=== PATIENT | male | born 1990 | race Asian ===

== ENCOUNTER 2022-01-17 14:17 | Emergency (ER) | payer OTHER, MEDICAID, SELFPAY ==
[2022-01-17 14:25] VITALS: BP 125/96; PULSE 120; RESP 24; TEMP 36.4; O2SAT 95; BMI 25.7
--- NOTE | 2022-01-17 14:42 | ED_ITS ---
HPI - SOB/Dyspnea <APOLLO Prather - Last Filed: 01/17/22 16:03> General Chief Complaint: Shortness of Breath/Dyspnea Stated Complaint: SOB/Asthama attack because of flu t-1 Time Seen by Provider: 01/17/22 14:33 Source: patient Mode of arrival: Ambulatory Limitations: no limitations History of Present Illness HPI Narrative: This is a 31-year-old male who presents to the emergency department complaining of 14 hours of worsening shortness of breath with history of asthma after exposure to influenza. Patient states that he uses albuterol only at baseline, does not have any significant medical problems other than asthma and states he had COVID approximately 3 months ago. He denies fever, chills, states he is had post-tussive emesis today but denies vomiting otherwise. Related Data Previous Rx's Medication Instructions Recorded albuterol sulfate 90 mcg/actuation 1 puff inhalation QID PRN 01/17/22 aerosol inhaler shortness of breath or wheezing #8.5 grams cetirizine 5 mg tablet 10 mg PO DAILY PRN congestion #14 01/17/22 tabs magnesium oxide 420 mg tablet 420 mg PO BEDTIME #14 tabs 01/17/22 prednisone 20 mg tablet 20 mg PO DAILY 4 days #4 tabs 01/17/22 Allergies Allergy/AdvReac Type Severity Reaction Status Date / Time No Known Drug Allergies Allergy Verified 01/17/22 14:25 Review of Systems <APOLLO Prather - Last Filed: 01/17/22 16:03> Review of Systems Narrative: Review of systems is negative for acute abnormalities unless otherwise noted in HPI Patient History <APOLLO Prather - Last Filed: 01/17/22 16:03> Social History Smoking Status: Never smoker Smoking Status: Never smoker Substance Use Type: does not use Exam <APOLLO Prather - Last Filed: 01/17/22 16:03> Narrative Exam Narrative: Reviewed vitals signs and nursing notes. General: cooperative, comfortable, in no acute distress, well groomed, patient is sitting upright, appears to have mild respiratory distress, RT is assisting with nebulizer HEENT: symmetrical facial expressions, moist mucous membranes Cardiovascular: Tachycardic rate and regular rhythm, no peripheral edema, warm extremities Respiratory: Increased effort, diminished breath sounds throughout, patient has occasional squeaks but is mostly tight, retractions present, speaking in 2-3 word sentences, RT at the bedside initiating DuoNebidor, tachypneic Skin: brisk capillary refill, without pallor or erythema Neuro: normal speech and cognition, A&O x3, ambulatory, clear speech Psych: mental status is grossly normal, congruent mood, normal affect, pleasant and cooperative Initial Vital Signs Initial Vital Signs: Vital Signs Temperature 97.6 F 01/17/22 14:25 Pulse Rate 120 H 01/17/22 14:25 Respiratory Rate 24 01/17/22 14:25 Blood Pressure 125/96 H 01/17/22 14:25 Pulse Oximetry 95 01/17/22 14:25 Oxygen Delivery Method 01/17/22 14:25 <Roderick Gutierrez DO - Last Filed: 01/17/22 17:55> Initial Vital Signs Initial Vital Signs: Vital Signs Temperature 97.6 F 01/17/22 14:25 Pulse Rate 120 H 01/17/22 14:25 Respiratory Rate 24 01/17/22 14:25 Blood Pressure 125/96 H 01/17/22 14:25 Pulse Oximetry 95 01/17/22 14:25 Oxygen Delivery Method 01/17/22 14:25 Course <APOLLO Prather - Last Filed: 01/17/22 16:03> Orders Ordered: ED Orders 01/17/22 14:33 RT Consult Eval and Treat NOW 01/17/22 14:40 Covid-19 + FLU A/B + RSV - PCR Stat Discontinued Medications Albuterol/Ipratropium (Albuterol/Ipratropium 3 Ml Ampul) 3 ml INH NOW ONE Stop: 01/17/22 14:41 Last Admin: 01/17/22 14:44 Dose: 3 ml Documented By: CARMEN Albuterol/Ipratropium (Albuterol/Ipratropium 3 Ml Ampul) 3 ml INH NOW ONE Stop: 01/17/22 14:42 Last Admin: 01/17/22 15:07 Dose: Not Given Documented By: TRISTA Dexamethasone (Dexamethasone 10 Mg/Ml Vial) 10 mg PO NOW ONE Stop: 01/17/22 14:42 Last Admin: 01/17/22 15:05 Dose: 10 mg Documented By: TRISTA Ondansetron HCl (Ondansetron 4 Mg Odt) 4 mg SL NOW ONE Stop: 01/17/22 14:43 Last Admin: 01/17/22 15:04 Dose: 4 mg Documented By: TRISTA Vital Signs Vital signs: Vital Signs - 8 hr 01/17/22 14:25 01/17/22 14:44 01/17/22 15:00 Temperature 97.6 F Pulse Rate 120 H 115 H 115 H Respiratory Rate 24 Blood Pressure 125/96 H Pulse Oximetry 95 98 100 Oxygen Delivery Method Room Air 01/17/22 15:30 01/17/22 16:00 01/17/22 16:11 Temperature Pulse Rate 110 H 106 H 103 H Respiratory Rate Blood Pressure 146/83 H Pulse Oximetry 96 94 96 Oxygen Delivery Method Room Air <Roderick Gutierrez DO - Last Filed: 01/17/22 17:55> Orders Ordered: ED Orders 01/17/22 14:33 RT Consult Eval and Treat NOW 01/17/22 14:40 Covid-19 + FLU A/B + RSV - PCR Stat Discontinued Medications Albuterol/Ipratropium (Albuterol/Ipratropium 3 Ml Ampul) 3 ml INH NOW ONE Stop: 01/17/22 14:41 Last Admin: 01/17/22 14:44 Dose: 3 ml Documented By: CARMEN Albuterol/Ipratropium (Albuterol/Ipratropium 3 Ml Ampul) 3 ml INH NOW ONE Stop: 01/17/22 14:42 Last Admin: 01/17/22 15:07 Dose: Not Given Documented By: TRISTA Dexamethasone (Dexamethasone 10 Mg/Ml Vial) 10 mg PO NOW ONE Stop: 01/17/22 14:42 Last Admin: 01/17/22 15:05 Dose: 10 mg Documented By: TRISTA Ondansetron HCl (Ondansetron 4 Mg Odt) 4 mg SL NOW ONE Stop: 01/17/22 14:43 Last Admin: 01/17/22 15:04 Dose: 4 mg Documented By: TRISTA Vital Signs Vital signs: Vital Signs - 8 hr 01/17/22 14:25 01/17/22 14:44 01/17/22 15:00 Temperature 97.6 F Pulse Rate 120 H 115 H 115 H Respiratory Rate 24 Blood Pressure 125/96 H Pulse Oximetry 95 98 100 Oxygen Delivery Method Room Air 01/17/22 15:30 01/17/22 16:00 01/17/22 16:11 Temperature Pulse Rate 110 H 106 H 103 H Respiratory Rate Blood Pressure 146/83 H Pulse Oximetry 96 94 96 Oxygen Delivery Method Room Air MDM - SOB/Dyspnea <Vanna Yepez, [employer]PA[employer]ER - Last Filed: 01/17/22 16:03> Lab Data Labs: Lab Results 01/17/22 Range/Units 14:40 SARS-CoV-2 (PCR) Negative (Negative) Influenza A (RT-PCR) Flu a negative (NEGATIVE) Influenza B (RT-PCR) Flu b negative (NEGATIVE) RSV (PCR) Negative (Negative) MDM Narrative Medical decision making narrative: This is a 31-year-old male who presents to the emergency department for shortness of breath and states is related to exposure to influenza a and he has been sick for the last 3 days with a couple episodes of posttussive emesis. On exam, patient had diminished breath sounds throughout, his chest was tight with occasional squeaks, DuoNeb was started by respiratory therapy in it markedly improved his shortness of breath, work of breathing, comfort and breath sounds. He was given dexamethasone, chest tightness and wheezing improve markedly in no further albuterol treatments were needed. Patient is afebrile, without increased work of breathing, hypoxia, rhonchi, or other symptom to suggest bacterial infection. Other possible diagnosis' considered include; viral URI, influenza, pneumonia, pharyngitis, acute bronchitis, allergic rhinitis, pe rtussis, sinusitis, appendicitis, dehydration. Rest, drink plenty of fluids, NSAIDS for muscle aches and pains. Return to ED for worsening symptoms such as SOB, chest pain, inability to take adequate oral fluids, fever, or productive cough. Is given prescription of prednisone for the next few days, albuterol was refilled, encourage use [id number] Tylenol and ibuprofen, antihistamines, and decongestants as needed. Patient is appropriate and amenable to discharge home. Vital signs are stable on repeat examination is unremarkable. Patient has been informed of results. Patient has been given strict return to ER precautions for any new or worsening symptoms. Patient understands to follow up closely with outpatient providers as instructed. Patient understands plan and agrees to discharge home. All questions and concerns answered at this time. <Roderick Gutierrez, DO - Last Filed: 01/17/22 17:55> Lab Data Labs: Lab Results 01/17/22 Range/Units 14:40 SARS-CoV-2 (PCR) Negative (Negative) Influenza A (RT-PCR) Flu a negative (NEGATIVE) Influenza B (RT-PCR) Flu b negative (NEGATIVE) RSV (PCR) Negative (Negative) Discharge Plan Departure Patient Disposition: Home Clinical Impression: Asthma with exacerbation Activity Restrictions/Additional Instructions: *You have been diagnosed with an asthma exacerbation, this could be due to viral illness, you tested negative for influenza, COVID, and RSV today but it could turn positive in the next few days. Tomorrow please start taking prednisone 20 mg daily for the next 4 days, take magnesium at night and Zyrtec 10 mg at night as needed for congestion. I have refilled your albuterol inhaler, please come back to the emergency department if you experience shortness of breath like you did, I hope you feel better soon, stay hydrated, and use Tylenol and ibuprofen as needed for muscle aches and fever. *What to do: *Please continue to take your regular medications as directed. [x ] New medication prescriptions sent to your pharmacy: [[facility]] [ ] New medication written as a paper prescription [ ] No new medications given *Please follow up with your primary care provider in 2-3 days, call for an appointment. Let them know you were seen in the Emergency Department and that we asked that you be seen for follow-up. We will electronically transmit a record of today's note if your PCP is in our system *If you do not have a primary care provider please contact [phone] to establish care with one of the [facility] primary care providers. *Return to Emergency Department if you should have any new, worsening, or concerning symptoms, such as [fever greater than 101F, chills, worsening pain, persistent vomiting or other bothersome symptoms]. Prescriptions: New prednisone 20 mg tablet 20 mg PO DAILY 4 Days Qty: 4 0RF cetirizine 5 mg tablet 10 mg PO DAILY PRN (Reason: congestion) Qty: 14 0RF albuterol sulfate 90 mcg/actuation HFA aerosol inhaler 1 puff inhalation QID PRN (Reason: shortness of breath or wheezing) Qty: 8.5 3RF magnesium oxide 420 mg tablet 420 mg PO BEDTIME Qty: 14 0RF Referrals: Reggie Guerra DO [Primary Care Provider] - Visit Report Forms: Patient Portal/API <Roderick Gutierrez DO - Last Filed: 01/17/22 17:55> Cosign ED Attending Cosignature Attestation: Dr Gutierrez Co-Sign Statement: I was available for consultation during this patient's emergency department visit. This chart is signed by myself for administrative purposes only. I did not have direct contact with this patient during this visit. They were seen independently by the APC.
[2022-01-17 14:44] VITALS: PULSE 115; O2SAT 98
[2022-01-17] MEDS: ALBUTEROL/IPRATROPIUM 3 ML AMPUL INH (14:44)
[2022-01-17 15:00] VITALS: PULSE 115; O2SAT 100
[2022-01-17] MEDS: ONDANSETRON 4 MG ODT SL (15:04)
[2022-01-17] MEDS: DEXAMETHASONE 10 MG/ML VIAL PO (15:05)
[2022-01-17 15:25] LABS: Influenza A - CEPHEID Flu A NEGATIVE (NEGATIVE); Influenza B - CEPHEID Flu B NEGATIVE (NEGATIVE); Respiratory Syncytial Virus Negative (Negative)
[2022-01-17 15:28] LABS: COVID-19 CEPHEID 4-PLEX PCR Negative (Negative)
[2022-01-17 15:30] VITALS: PULSE 110; O2SAT 96
[2022-01-17 16:00] VITALS: PULSE 106; O2SAT 94
[2022-01-17 16:11] VITALS: BP 146/83; PULSE 103; O2SAT 96
== END 2022-01-17 16:12 | disposition home or self-care (01) ==
PROVIDERS: Emergency Medicine; Emergency Provider Nurse Practitioner Critical Care Medicine; PCP Family Medicine
DX: J45.901 Unspecified asthma with (acute) exacerbation (principal); Z20.822 Contact with and (suspected) exposure to COVID-19
CPT/HCPCS: 0241U; 94640; 99283; J1100

== ENCOUNTER 2022-03-23 08:52 | Emergency (ER) | payer OTHER, MEDICAID, SELFPAY ==
[2022-03-23 09:08] VITALS: BP 136/88; PULSE 91; O2SAT 95
--- NOTE | 2022-03-23 09:08 | ED_ITS ---
HPI - General Adult General Chief complaint: Abdominal Pain Stated complaint: thinks kidney stones Time Seen by Provider: 03/23/22 09:00 Source: patient Mode of arrival: Ambulatory Limitations: no limitations History of Present Illness HPI narrative: Patient is a 32-year-old male who is here for evaluation of what he states is a kidney stone. He states that about 5 years ago he had a stone. This was diagnosed on a CT scan. He states he received some medications and he thinks that he passed it on his own. Approximately 1 week ago he started to have some blood in his urine in pain in his abdomen that was both sides with left being worse than right. No fevers. No vomiting. It lasted 2 hours and then res olved. At a reoccurrence of that pain this morning. He states he is having blood in his urine. Again no fevers. No change in bowel habits. He does urinary hesitancy. Describes pain across both sides of his lower abdomen and both sides of his lower back with left being greater than right. Related Data Previous Rx's Medication Instructions Recorded albuterol sulfate 90 mcg/actuation 1 puff inhalation QID PRN 01/17/22 aerosol inhaler shortness of breath or wheezing #8.5 grams cetirizine 5 mg tablet 10 mg PO DAILY PRN congestion #14 01/17/22 tabs magnesium oxide 420 mg tablet 420 mg PO BEDTIME #14 tabs 01/17/22 hydrocodone 5 mg-acetaminophen 325 1 tab PO Q4-6H PRN pain #10 tabs 03/23/22 mg tablet ondansetron 4 mg disintegrating 4 mg PO Q6H PRN nausea and 03/23/22 tablet vomiting #14 tabs Allergies Allergy/AdvReac Type Severity Reaction Status Date / Time No Known Drug Allergies Allergy Verified 03/23/22 09:09 Review of Systems Constitutional Constitutional: Reports system reviewed and no additional complaints, except as documented Gastrointestinal Gastrointestinal: Reports system reviewed and no additional complaints, except as documented Genitourinary Genitourinary: Reports system reviewed and no additional complaints, except as documented Integumentary/Breasts Skin/Breast: Reports system reviewed and no additional complaints, except as documented Patient History Social History Smoking Status: Never smoker Smoking Status: Never smoker Substance Use Type: does not use Exam Initial Vital Signs Initial Vital Signs: Vital Signs Temperature 98.3 F 03/23/22 09:13 Pulse Rate 85 03/23/22 09:13 Respiratory Rate 15 03/23/22 09:13 Blood Pressure 136/88 03/23/22 09:13 Pulse Oximetry 100 03/23/22 09:13 Oxygen Delivery Method 03/23/22 09:13 HENMT Head: normal to inspection and normocephalic Resp Effort & Inspection: normal respiratory effort Cardio Rate: regular rate GI Inspection: normal to inspection and non-distended Palpation: soft and No tender (No reproducible tenderness) Back/Spine/Pelvis Back: No CVA tenderness Skin General: no rashes or lesions noted Extrem General: normal to inspection and capillary refill normal Course Orders Ordered: ED Orders 03/23/22 09:06 Urine Microscopic Stat 03/23/22 09:11 CT kidney ureter bladder (KUB) Stat 03/23/22 09:42 Basic Metabolic Panel Stat Complete Blood Count AUTO DIFF Stat Ondansetron HCl (Ondansetron 4 Mg/2 Ml Inj) 4 mg IV NOW PRN PRN Reason: Nausea And Vomiting Ondansetron HCl (Ondansetron 4 Mg Odt) 4 mg SL NOW PRN PRN Reason: Nausea And Vomiting Vital Signs Vital signs: Vital Signs - 8 hr 03/23/22 09:13 Temperature 98.3 F Pulse Rate 85 Respiratory Rate 15 Blood Pressure 136/88 Pulse Oximetry 100 Oxygen Delivery Method Room Air Medical Decision Making Differential Diagnosis Differential Diagnosis: Kidney stone, appendicitis, pyelo, UTI and others Lab Data Lab results reviewed: Yes I reviewed the patient's lab results. 03/23/22 09:42 03/23/22 09:42 Labs: Lab Results 03/23/22 03/23/22 Range/Units 09:06 09:42 WBC 11.9 H (4.5-11.0) X10^3/uL RBC 5.56 (4.5-5.9) X10^6/uL Hgb 15.5 (13.5-17.5) g/dL Hct 46.2 (41-53) % MCV 83.1 (80-100) fL MCH 27.8 (26-34) PG MCHC 33.5 (30-36) % RDW 12.9 (11.6-14.8) % Plt Count 227 (150-400) X10^3/uL Neut % (Auto) 88.1 H (50-75) % Lymph % (Auto) 7.3 L (25-40) % Bonner % (Auto) 3.4 (3-14) % Eos % (Auto) 0.8 L (2-4) % Baso % (Auto) 0.4 (0-2) % Neut # (Auto) 41826 H (9047-2989) /uL Lymph # (Auto) 900 L (1618-4709) /uL Bonner # (Auto) 400 (0-900) /uL Eos # (Auto) 100 (0-450) /uL Baso # (Auto) 0 (0-100) /uL Urine RBC >100/hpf H (0-5/HPF) Urine WBC 0-1/hpf (0-5/HPF) Ur Squamous Epith Cells 0-1 /hpf (0-5/HPF) Urine Bacteria Few (2-10) H (None) Urine Mucus 1+ H (Negative) Ur Culture Indicated? Cult not indicated Urine Dip Bedside Urine Glucose Negative Bedside Urine Bilirubin - Negative Bedside Urine Ketone - Negative Urine Specific [place] 1.015 Bedside Urine Occult Blood +++ Bedside Urine pH 6.0 Bedside Urine Protein + 30 Bedside Urine Urobilinogen - Negative Bedside Urine Nitrite - Negative Bedside Urine Leukocytes - Negative Esterase Point of care testing: Urine Dip Bedside Urine Glucose Negative Bedside Urine Bilirubin - Negative Bedside Urine Ketone - Negative Urine Specific [place] 1.015 Bedside Urine Occult Blood +++ Bedside Urine pH 6.0 Bedside Urine Protein + 30 Bedside Urine Urobilinogen - Negative Bedside Urine Nitrite - Negative Bedside Urine Leukocytes - Negative Esterase Imaging Data CT scan - abdomen/pelvis: Radiologist's Impression: [place] [address] CT Scan Report Signed Patient: Renzo Shannon MR#: [id number] : 1990 Acct:[id number] Age/Sex: 32 / M Date of Service: 03/23/22 Loc: ED Accession Number: [id number] ?? Procedure: CT kidney ureter bladder (KUB) Ordering Provider: Roderick Gutierrez D.O. PROCEDURE:? CT KIDNEY URETER BLADDER (KUB) ? INDICATIONS:? Left-sided flank pain eval for stone ? TECHNIQUE:? Axial sections were acquired from the lung bases to the pubic symphysis.? C oronal and sagittal reformats were performed.? For radiation dose reduction, the following was used: ?automated exposure control, adjustment of mA and/or kV according to patient size.? ? COMPARISON:? None. ? FINDINGS:? Image quality:? Excellent.? ? Lung bases:? Unremarkable.? ? Heart:? No significant findings. ? URINARY: Right Kidney:? Punctate right renal calcification is present.? No obstruction. Right Ureter:? No hydroureter.? ? Left Kidney: ? No stones or hydronephrosis. Left Ureter:? There is a very slight appearance of hydronephrosis.? Punctate calcification is present approximately 5 mm from the left ureterovesicular junction.? ? Bladder:? Normal wall thickness. No stones. ? ? ? ABDOMEN: Liver:? Liver is mildly prominent measuring 17.8 cm. Gallbladder:? Unremarkable.? ? Biliary ducts:? Unremarkable.? ? Pancreas:? Unremarkable.? ? Spleen:? Unremarkable.? ? Adrenal Glands:? Unremarkable.? ? ? Stomach and Bowel:? Stomach, small bowel loops, and colon are unremarkable.? Peritoneum:? No abnormal intraperitoneal fluid.? No free air.? ? Ventral Wall: ? Trace fat containing ventral hernia.? Abdominal Nodes:? No enlarged retroperitoneal or mesenteric lymph nodes.? Vessels:? Aorta and inferior vena cava are normal in size.? ? PELVIS: Pelvic Organs:? Unremarkable.? ? Pelvic Nodes: Unremarkable. Miscellaneous: No inguinal hernias are seen. ? ? ? Bones:? Unremarkable. ? IMPRESSION:? ? Punctate calcification 5 mm proximal to the ureterovesicular junction with minimal hydroureter. ? ? ? Dictated by: Oksana Maciel M.D. on 03/23/2022 at 10:20 ? ? Approved by: Oksana Maciel M.D. on 03/23/2022 at 10:23? MDM Narrative Medical decision making narrative: CT scan does show 5 mm distal stone on the left. No signs of pyelo. Urinalysis is unremarkable. Kidney functions unremarkable. Will discharge patient home w ith symptom treatment. He was given return precautions. He expressed understanding and agreement. Discharge Plan Departure Patient Disposition: Home Clinical Impression: Renal colic on left side Instructions: DI for Kidney Stones Activity Restrictions/Additional Instructions: Be sure that you are staying hydrated. Take the medications as needed and as directed. They were electronically transmitted to [facility] per your request. Return to the emergency department for any new or worsening symptoms. Prescriptions: New hydrocodone-acetaminophen 5-325 mg tablet 1 tab PO Q4-6H PRN (Reason: pain) Qty: 10 0RF ondansetron 4 mg tablet,disintegrating 4 mg PO Q6H PRN (Reason: nausea and vomiting) Qty: 14 0RF No Action cetirizine 5 mg tablet 10 mg PO DAILY PRN (Reason: congestion) Qty: 14 0RF albuterol sulfate 90 mcg/actuation HFA aerosol inhaler 1 puff inhalation QID PRN (Reason: shortness of breath or wheezing) Qty: 8.5 3RF magnesium oxide 420 mg tablet 420 mg PO BEDTIME Qty: 14 0RF Referrals: Reggie Guerra DO [Primary Care Provider] - Stand Alone Forms: Patient Portal/API
--- NOTE | 2022-03-23 09:11 | DI.CT.S_ITS ---
PROCEDURE: CT KIDNEY URETER BLADDER (KUB) INDICATIONS: Left-sided flank pain eval for stone TECHNIQUE: Axial sections were acquired from the lung bases to the pubic symphysis. Coronal and sagittal reformats were performed. For radiation dose reduction, the following was used: automated exposure control, adjustment of mA and/or kV according to patient size. COMPARISON: None. FINDINGS: Image quality: Excellent. Lung bases: Unremarkable. Heart: No significant findings. URINARY: Right Kidney: Punctate right renal calcification is present. No obstruction. Right Ureter: No hydroureter. Left Kidney: No stones or hydronephrosis. Left Ureter: There is a very slight appearance of hydronephrosis. Punctate calcification is present approximately 5 mm from the left ureterovesicular junction. Bladder: Normal wall thickness. No stones. ABDOMEN: Liver: Liver is mildly prominent measuring 17.8 cm. Gallbladder: Unremarkable. Biliary ducts: Unremarkable. Pancreas: Unremarkable. Spleen: Unremarkable. Adrenal Glands: Unremarkable. Stomach and Bowel: Stomach, small bowel loops, and colon are unremarkable. Peritoneum: No abnormal intraperitoneal fluid. No free air. Ventral Wall: Trace fat containing ventral hernia. Abdominal Nodes: No enlarged retroperitoneal or mesenteric lymph nodes. Vessels: Aorta and inferior vena cava are normal in size. PELVIS: Pelvic Organs: Unremarkable. Pelvic Nodes: Unremarkable. Miscellaneous: No inguinal hernias are seen. Bones: Unremarkable. IMPRESSION: Punctate calcification 5 mm proximal to the ureterovesicular junction with minimal hydroureter. Dictated by: Oksana Maciel M.D. on 03/23/2022 at 10:20 Approved by: Oksana Maciel M.D. on 03/23/2022 at 10:23
[2022-03-23 09:13] VITALS: BP 136/88; PULSE 85; RESP 15; TEMP 36.8; O2SAT 100; BMI 25.7
[2022-03-23 09:34] LABS: RBC Urine >100/HPF (0-5/HPF); WBC Urine 0-1/HPF (0-5/HPF)
[2022-03-23 09:35] LABS: Squamous Epithelial Cell Urine 0-1 /HPF (0-5/HPF)
[2022-03-23 09:36] LABS: Bacteria Urine Few (2-10); Culture Indicated Urine Cult Not Indicated; Mucus Urine 1+ (Negative)
[2022-03-23 09:53] LABS: Add Manual Diff / Slide Review NO; Basophils Absolute Auto 0 /uL (0-100); Basophils Percent Auto 0.4 % (0-2); Eosinophils Absolute Auto 100 /uL (0-450); Eosinophils Percent Auto 0.8 % (2-4); Hematocrit 46.2 % (41-53); Hemoglobin 15.5 g/dL (13.5-17.5); Lymphocytes Absolute Auto 900 /uL (1100-4500); Lymphocytes Percent Auto 7.3 % (25-40); Mean Corpuscular HGB Conc 33.5 % (30-36); Mean Corpuscular Hemoglobin 27.8 PG (26-34); Mean Corpuscular Volume 83.1 fL (80-100); Monocytes Absolute Auto 400 /uL (0-900); Monocytes Percent Auto 3.4 % (3-14); Neutrophils Absolute Auto 10500 /uL (1500-7000); Neutrophils Percent Auto 88.1 % (50-75); Platelet Count 227 X10^3/uL (150-400); Red Blood Cell Count 5.56 X10^6/uL (4.5-5.9); Red Cell Distribution Width 12.9 % (11.6-14.8); White Blood Cell Count 11.9 X10^3/uL (4.5-11.0)
[2022-03-23 10:39] LABS: Blood Urea Nitrogen 12 mg/dL (9-20); Calcium 9.4 mg/dL (8.4-10.2); Carbon Dioxide 28 mmol/L (22-32); Chloride 100 mmol/L (98-107); Estimated Glomerular Filt Rate > 60 mL/min (>60); Glucose 98 mg/dL (70-100); HEMOLYSIS < 15 (0-50); Potassium 4.2 mmol/L (3.4-5.1); Sodium 139 mmol/L (137-145)
== END 2022-03-23 10:42 | disposition home or self-care (01) ==
PROVIDERS: Emergency Provider Emergency Medicine; PCP Family Medicine
DX: N23 Unspecified renal colic (principal)
CPT/HCPCS: 36415; 74176; 80048; 81003; 81015; 85025; 99283; 99284

== ENCOUNTER 2022-03-24 13:17 | Emergency (ER) | payer OTHER, MEDICAID, SELFPAY ==
[2022-03-24 13:21] VITALS: BP 166/107; PULSE 79; RESP 17; TEMP 36.6; O2SAT 98; BMI 25.7
--- NOTE | 2022-03-24 13:47 | ED_ITS ---
HPI - Recheck/Abnormal Lab/Rx General Chief Complaint: Recheck/Abnormal Lab/Rx Stated Complaint: kidney pain x2 days Time Seen by Provider: 03/24/22 13:38 Source: patient Mode of arrival: Ambulatory Limitations: no limitations History of Present Illness HPI narrative: Patient is a 32-year-old male who I evaluated in the emergency department yesterday and had a workup and diagnosed with a 5 mm left-sided distal ureteral stone. Kidney function was unremarkable. There is no indication of any urinary tract infection. He had minimal if any hydro on the left. Was discharged home with Zofran and pain medication. He states that after he went home he was feeling well until this morning he woke up with increased pain and nausea. He took the nausea medication and that did help that symptom however the pain med ication has not helped and he continues to have quite a bit of discomfort. No fevers. Pain is on the left side of his abdomen. Related Data Previous Rx's Medication Instructions Recorded albuterol sulfate 90 mcg/actuation 1 puff inhalation QID PRN 01/17/22 aerosol inhaler shortness of breath or wheezing #8.5 grams cetirizine 5 mg tablet 10 mg PO DAILY PRN congestion #14 01/17/22 tabs magnesium oxide 420 mg tablet 420 mg PO BEDTIME #14 tabs 01/17/22 hydrocodone 5 mg-acetaminophen 325 1 tab PO Q4-6H PRN pain #10 tabs 03/23/22 mg tablet ondansetron 4 mg disintegrating 4 mg PO Q6H PRN nausea and 03/23/22 tablet vomiting #14 tabs ketorolac 10 mg tablet 10 mg PO TID PRN pain 5 days #15 03/24/22 tabs tamsulosin 0.4 mg capsule (Flomax) 0.4 mg PO DAILY #14 caps 03/24/22 Allergies Allergy/AdvReac Type Severity Reaction Status Date / Time No Known Drug Allergies Allergy Verified 03/24/22 13:23 Review of Systems Constitutional Constitutional: Reports system reviewed and no additional complaints, except as documented Gastrointestinal Gastrointestinal: Reports system reviewed and no additional complaints, except as documented Genitourinary Genitourinary: Reports system reviewed and no additional complaints, except as documented Integumentary/Breasts Skin/Breast: Reports system reviewed and no additional complaints, except as documented Neurologic Neurologic: Reports system reviewed and no additional complaints, except as documented Hematologic/Lymphatic On Anticoagulants: No Patient History Social History Smoking Status: Never smoker Smoking Status: Never smoker alcohol intake frequency: other Substance Use Type: does not use Exam Initial Vital Signs Initial Vital Signs: Vital Signs Temperature 98 F 03/24/22 13:21 Pulse Rate 79 03/24/22 13:21 Respiratory Rate 17 03/24/22 13:21 Blood Pressure 166/107 H 03/24/22 13:21 Pulse Oximetry 98 03/24/22 13:21 Oxygen Delivery Method 03/24/22 13:21 HENMT Head: normal to inspection and normocephalic Resp Effort & Inspection: normal respiratory effort Cardio Rate: regular rate GI Inspection: non-distended Skin General: no rashes or lesions noted Neuro General: patient alert, patient awake and moves all extremities Course Orders Ordered: ED Orders 03/24/22 14:00 Basic Metabolic Panel Stat 03/24/22 14:58 Urine Microscopic Stat Tamsulosin HCl (Tamsulosin 0.4 Mg Capsule) 0.4 mg PO NOW ONE Stop: 03/24/22 15:22 Discontinued Medications Ketorolac Tromethamine (Ketorolac 30 Mg/Ml Vial) 30 mg IV NOW ONE Stop: 03/24/22 13:48 Last Admin: 03/24/22 14:08 Dose: 30 mg Documented By: NR Ondansetron HCl (Ondansetron 4 Mg/2 Ml Inj) 4 mg IV NOW ONE Stop: 03/24/22 13:48 Last Admin: 03/24/22 14:08 Dose: 4 mg Documented By: NR Vital Signs Vital signs: Vital Signs - 8 hr 03/24/22 13:21 Temperature 98 F Pulse Rate 79 Respiratory Rate 17 Blood Pressure 166/107 H Pulse Oximetry 98 Oxygen Delivery Method Room Air MDM - Recheck/Abnormal Lab/Rx Lab Data 03/24/22 14:00 Labs: Lab Results 03/24/22 Range/Units 14:00 Sodium 138 (137-145) mmol/L Potassium 4.1 (3.4-5.1) mmol/L Chloride 99 (98-107) mmol/L Carbon Dioxide 27 (22-32) mmol/L BUN 16 (9-20) mg/dL Creatinine 1.37 H (0.66-1.25) mg/dL Estimated GFR > 60 (>60) mL/min BUN/Creatinine Ratio 11.7 (6-22) Glucose 98 (70-100) mg/dL Calcium 9.4 (8.4-10.2) mg/dL Urine Dip Bedside Urine Glucose Negative Bedside Urine Bilirubin - Negative Bedside Urine Ketone +++ 80 Urine Specific Landrum 1.030 Bedside Urine Occult Blood +++ Bedside Urine pH 6.0 Bedside Urine Protein + 30 Bedside Urine Urobilinogen - Negative Bedside Urine Nitrite - Negative Bedside Urine Leukocytes - Negative Esterase MDM Narrative Medical decision making narrative: Patient has a known 5 mm left-sided ureteral stone. His urinalysis today does not show any signs of infection. He did have a slight bump in his creatinine. Patient reports a vast improvement/resolution of his symptoms after Toradol and Zofran. Given his presentation today I do feel that we can hold on any further imaging studies. No indication for acute urologic intervention. He already has pain medication and nausea medicine. Will discharge him home with Flomax and also ketorolac. He was given return precautions. He expressed understanding. Discharge Plan Departure Patient Disposition: Home Clinical Impression: Renal colic on left side Instructions: Kidney Stones -- Adult Activity Restrictions/Additional Instructions: In addition to the medicines that you were given yesterday I did send 2 new prescriptions to [facility] [place]. One is a medicine called Flomax. You can take this medication until you pass the stone. This is 1 tablet today. There is also medicine called ketorolac. This is an anti-inflammatory that you can take as needed for pain control. Return to the emergency department for any new or worsening symptoms. Prescriptions: New tamsulosin [Flomax] 0.4 mg capsule 0.4 mg PO DAILY Qty: 14 0RF ketorolac 10 mg tablet 10 mg PO TID PRN (Reason: pain) 5 Days Qty: 15 0RF No Action hydrocodone-acetaminophen 5-325 mg tablet 1 tab PO Q4-6H PRN (Reason: pain) Qty: 10 0RF ondansetron 4 mg tablet,disintegrating 4 mg PO Q6H PRN (Reason: nausea and vomiting) Qty: 14 0RF cetirizine 5 mg tablet 10 mg PO DAILY PRN (Reason: congestion) Qty: 14 0RF albuterol sulfate 90 mcg/actuation HFA aerosol inhaler 1 puff inhalation QID PRN (Reason: shortness of breath or wheezing) Qty: 8.5 3RF magnesium oxide 420 mg tablet 420 mg PO BEDTIME Qty: 14 0RF Referrals: Reggie Guerra DO [Primary Care Provider] - Stand Alone Forms: Patient Portal/API
[2022-03-24] MEDS: KETOROLAC 30 MG/ML VIAL IV (14:08)
[2022-03-24] MEDS: ONDANSETRON 4 MG/2 ML INJ IV (14:08)
--- NOTE | 2022-03-24 14:12 | PC.NURSE ---
pt states symptoms started about one week ago, he had a CT scan and was told he has kidney stones. pt was given zofran and vicodin for pain and nausea, states he was feeling better until this morning when the pain suddenly became unbearable. pt came to ER for help. pt is in position in bed, rocking back and forth.
[2022-03-24 14:26] LABS: BUN Creatinine Ratio 11.7 (6-22); Blood Urea Nitrogen 16 mg/dL (9-20); Calcium 9.4 mg/dL (8.4-10.2); Carbon Dioxide 27 mmol/L (22-32); Chloride 99 mmol/L (98-107); Estimated Glomerular Filt Rate > 60 mL/min (>60); Glucose 98 mg/dL (70-100); HEMOLYSIS < 15 (0-50); Potassium 4.1 mmol/L (3.4-5.1); Sodium 138 mmol/L (137-145)
[2022-03-24 15:24] LABS: Bacteria Urine None Seen; Culture Indicated Urine Cult Not Indicated; RBC Urine 5-10/HPF (0-5/HPF); WBC Urine 0-1/HPF (0-5/HPF)
[2022-03-24] MEDS: TAMSULOSIN 0.4 MG CAPSULE PO (15:40)
[2022-03-24 15:44] VITALS: BP 143/79; PULSE 77; RESP 18; O2SAT 97
== END 2022-03-24 15:45 | disposition home or self-care (01) ==
PROVIDERS: Emergency Provider Emergency Medicine; PCP Family Medicine
DX: N23 Unspecified renal colic (principal)
CPT/HCPCS: 36415; 80048; 81003; 81015; 96374; 96375; 99284; J1885; J2405

== ENCOUNTER 2023-05-31 23:00 | Emergency (ER) | payer OTHER, MEDICAID, SELFPAY ==
[2023-05-31 23:03] VITALS: BP 140/82; PULSE 95; RESP 22; TEMP 36.4; O2SAT 98; BMI 22.4
[2023-05-31] MEDS: ONDANSETRON 4 MG/2 ML INJ IV (23:19)
[2023-05-31] MEDS: KETOROLAC 30 MG/ML VIAL 15 MG IV (23:21)
[2023-05-31 23:26] LABS: Appearance Urine UA SL CLOUDY; Bilirubin Urine UA 1+ (NEGATIVE); Glucose Urine UA NEGATIVE (Negative); Ketones Urine UA TRACE (NEGATIVE); Leukocyte Esterase Urine UA NEGATIVE (NEGATIVE); Nitrite Urine UA POSITIVE (Negative); Occult Blood Urine UA 3+ (Negative); Protein Urine UA 3+ (Negative); Specific Gravity Urine UA >=1.030 (1.000-1.035); pH Urine UA 6.5 (4.5-8.0)
[2023-05-31 23:30] LABS: Add Manual Diff / Slide Review NO; Basophils Absolute Auto 0 /uL (0-100); Basophils Percent Auto 0.2 % (0-2); Color Urine UA Amber; Eosinophils Absolute Auto 100 /uL (0-450); Eosinophils Percent Auto 0.9 % (2-4); Hematocrit 44.1 % (41-53); Hemoglobin 14.6 g/dL (13.5-17.5); Lymphocytes Absolute Auto 1200 /uL (1100-4500); Lymphocytes Percent Auto 10.7 % (25-40); Mean Corpuscular Volume 84.7 fL (80-100); Monocytes Absolute Auto 500 /uL (0-900); Monocytes Percent Auto 4.9 % (3-14); Neutrophils Absolute Auto 9200 /uL (1500-7000); Neutrophils Percent Auto 83.3 % (50-75); Platelet Count 238 X10^3/uL (150-400); Red Blood Cell Count 5.21 X10^6/uL (4.5-5.9); Red Cell Distribution Width 12.6 % (11.6-14.8)
--- NOTE | 2023-05-31 23:33 | DI.CT.S_ITS ---
PROCEDURE: CT ABDOMEN PELVIS WO CON INDICATIONS: RLQ PAIN, HEMATURIA TECHNIQUE: Axial sections were acquired from the lung bases to the pubic symphysis. Coronal and sagittal reformats were performed. For radiation dose reduction, the following was used: automated exposure control, adjustment of mA and/or kV according to patient size. COMPARISON: None. FINDINGS: Image quality: Diagnostic. Lower Chest: No significant findings. URINARY: Right Kidney: No stones or hydronephrosis. Subtle medullary calcinosis. Right Ureter: No hydroureter. Left Kidney: Several tiny 1 mm stones are seen. Mild medullary calcinosis. No hydronephrosis. Left Ureter: No hydroureter. Bladder: Normal wall thickness. No stones. ABDOMEN: Liver: No contour-deforming solid mass. Gallbladder: Possible a small gallstone versus artifact. Biliary ducts: No biliary dilation. Pancreas: No ductal dilation. Spleen: Size is within normal limits. Adrenal Glands: No adrenal nodules. Stomach and Bowel: Normal small bowel and colonic caliber, without significant wall thickening. Normal appendix. Peritoneum: No abnormal intraperitoneal fluid. No free air. Ventral Wall: No hernia. Abdominal Nodes: No enlarged retroperitoneal or mesenteric lymph nodes. Vessels: Aorta and inferior vena cava are normal in size. PELVIS: Pelvic Organs: Unremarkable. Pelvic Nodes: Unremarkable. Miscellaneous: No inguinal hernias are seen. Bones: Unremarkable. Mild spondylitic changes in the lower lumbar spine. IMPRESSION: 1. Tiny 1 mm renal calculi in left kidney. 2. No definitive right kidney. 3. 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 4. Normal appendix. 5. Dictated by: Radha Vazquez M.D. on 06/01/2023 at 1:42 Approved by: Radha Vazquez M.D. on 06/01/2023 at 1:47
[2023-05-31 23:34] LABS: Amorphous Sediment Urine 1+; Bacteria Urine Many (>30); Ictotest Urine Negative (Negative); RBC Urine 10-30/HPF (0-5/HPF); Squamous Epithelial Cell Urine 0-1 /HPF (0-5/HPF); Urine Volume 10mL (spun); WBC Urine 0-1/HPF (0-5/HPF)
[2023-05-31 23:35] LABS: Culture Indicated Urine Specimen Cultured; Mucus Urine 2+ (Negative)
[2023-05-31 23:49] LABS: Alanine Aminotransferase 13 IU/L (<50); Albumin 5.1 g/dL (3.5-5.0); Albumin Globulin Ratio 1.6 (1.0-2.8); Alkaline Phosphatase 86 U/L (38-126); Aspartate Aminotransferase 22 IU/L (17-59); BUN Creatinine Ratio 10.8 (6-22); Bilirubin Total 0.9 mg/dL (0.2-1.3); Blood Urea Nitrogen 13 mg/dL (9-20); Calcium 9.7 mg/dL (8.4-10.2); Carbon Dioxide 28 mmol/L (22-32); Chloride 104 mmol/L (98-107); Estimated Glomerular Filt Rate > 60 mL/min (>60); Globulin 3.2 g/dL (1.7-4.1); Glucose 90 mg/dL (70-100); HEMOLYSIS < 15 (0-50); Lipase 43 U/L (23-300); Potassium 3.9 mmol/L (3.4-5.1); Sodium 141 mmol/L (137-145); Total Protein 8.3 g/dL (6.3-8.2)
--- NOTE | 2023-06-01 00:54 | ED_ITS ---
HPI - Abdominal Pain General Chief Complaint: Abdominal Pain Stated Complaint: thinks kidney stones/abd pain Time Seen by Provider: 05/31/23 23:33 Source: patient Mode of arrival: Ambulatory History of Present Illness HPI narrative: 33-year-old male presents by private vehicle from home for 1 day of right-sided abdominal pain. Patient has a history of kidney stones and he thinks he may have developed another kidney stone. Also reports associated nausea, bloating, generalized abdominal discomfort. Related Data Previous Rx's Medication Instructions Recorded albuterol sulfate 90 mcg/actuation 1 puff inhalation QID PRN 01/17/22 aerosol inhaler shortness of breath or wheezing #8.5 grams cetirizine 5 mg tablet 10 mg (2 x 5 mg) PO DAILY PRN 01/17/22 congestion #14 tabs magnesium oxide 420 mg tablet 420 mg PO BEDTIME #14 tabs 01/17/22 hydrocodone 5 mg-acetaminophen 325 1 tab PO Q4-6H PRN pain #10 tabs 03/23/22 mg tablet ondansetron 4 mg disintegrating 4 mg PO Q6H PRN nausea and 03/23/22 tablet vomiting #14 tabs tamsulosin 0.4 mg capsule (Flomax) 0.4 mg PO DAILY #14 caps 03/24/22 hydrocodone 5 mg-acetaminophen 325 1 tab PO Q8H PRN pain #7 tabs 06/01/23 mg tablet ondansetron 4 mg disintegrating 4 mg PO Q8H PRN nausea and 06/01/23 tablet vomiting #30 tabs sulfamethoxazole 800 1 tab PO Q12H #20 tabs 06/01/23 mg-trimethoprim 160 mg tablet (Bactrim DS) tamsulosin 0.4 mg capsule (Flomax) 0.4 mg PO DAILY #30 caps 06/01/23 Allergies Allergy/AdvReac Type Severity Reaction Status Date / Time No Known Drug Allergies Allergy Verified 03/24/22 13:23 Review of Systems Review of Systems Narrative: Negative except as noted above Patient History Social History Smoking Status: Never smoker Smoking Status: Never smoker alcohol intake frequency: other Substance Use Type: does not use Exam Initial Vital Signs Initial Vital Signs: Vital Signs Temperature 97.6 F 05/31/23 23:03 Pulse Rate 95 H 05/31/23 23:03 Respiratory Rate 22 05/31/23 23:03 Blood Pressure 140/82 05/31/23 23:03 Pulse Oximetry 98 05/31/23 23:03 Oxygen Delivery Method Room Air 05/31/23 23:03 Const: Awake, alert, uncomfortable, in pain, nontoxic appearance GI: Soft, tenderness to deep palpation right lower quadrant, no rebound or guarding MSK: No CVA tenderness bilaterally Skin: Warm, Dry, intact, no rashes Neuro: AO x3, CN II-XII grossly intact, moves all extremities Course Orders Ordered: Discontinued Medications Sodium Chloride (Normal Saline 0.9%) 1,000 mls @ 1,000 mls/hr IV BOLUS ONE Stop: 06/01/23 01:58 Last Infusion: 06/01/23 02:45 Dose: Infused Documented By: Admin: 06/01/23 01:23 Dose: 1,000 mls/hr Documented By: KRISHNA Ketorolac Tromethamine (Ketorolac 30 Mg/Ml Vial) 15 mg IV NOW ONE Stop: 05/31/23 23:21 Last Admin: 05/31/23 23:21 Dose: 15 mg Documented By: GEENA Morphine Sulfate (Morphine 4 Mg/Ml Inj) 4 mg IV NOW ONE Stop: 06/01/23 01:00 Last Admin: 06/01/23 01:22 Dose: 4 mg Documented By: KRISHNA Ondansetron HCl (Ondansetron 4 Mg Odt) 4 mg PO NOW PRN PRN Reason: Nausea And Vomiting Ondansetron HCl (Ondansetron 4 Mg/2 Ml Inj) 4 mg IV NOW PRN PRN Reason: Nausea And Vomiting Last Admin: 05/31/23 23:19 Dose: 4 mg Documented By: GEENA Ondansetron HCl (Ondansetron 4 Mg/2 Ml Inj) 4 mg IV NOW ONE Stop: 06/01/23 01:00 Last Admin: 06/01/23 01:22 Dose: 4 mg Documented By: KRISHNA Trimethoprim/Sulfamethoxazole (Trimeth/Sulfa 160/800 (Ds) Tablet) 1 tab PO NOW ONE Stop: 06/01/23 01:56 Last Admin: 06/01/23 02:02 Dose: 1 tab Documented By: HNG Vital Signs Vital signs: Vital Signs - 8 hr 05/31/23 23:03 Temperature 97.6 F Pulse Rate 95 H Respiratory Rate 22 Blood Pressure 140/82 Pulse Oximetry 98 Oxygen Delivery Method Room Air MDM - Abdominal Pain Differential Diagnosis Differential diagnosis: Likely abdominal pain, acute appendicitis and calculus of kidney Lab Data 05/31/23 23:15 05/31/23 23:15 Labs: Lab Results 05/31/23 Range/Units 23:15 WBC 11.0 (4.5-11.0) X10^3/uL RBC 5.21 (4.5-5.9) X10^6/uL Hgb 14.6 (13.5-17.5) g/dL Hct 44.1 (41-53) % MCV 84.7 (80-100) fL MCH 28.0 (26-34) PG MCHC 33.0 (30-36) % RDW 12.6 (11.6-14.8) % Plt Count 238 (150-400) X10^3/uL Neut % (Auto) 83.3 H (50-75) % Lymph % (Auto) 10.7 L (25-40) % Saunders % (Auto) 4.9 (3-14) % Eos % (Auto) 0.9 L (2-4) % Baso % (Auto) 0.2 (0-2) % Neut # (Auto) 9200 H (4804-6325) /uL Lymph # (Auto) 1200 (9713-0040) /uL Saunders # (Auto) 500 (0-900) /uL Eos # (Auto) 100 (0-450) /uL Baso # (Auto) 0 (0-100) /uL Sodium 141 (137-145) mmol/L Potassium 3.9 (3.4-5.1) mmol/L Chloride 104 (98-107) mmol/L Carbon Dioxide 28 (22-32) mmol/L BUN 13 (9-20) mg/dL Creatinine 1.20 (0.66-1.25) mg/dL Estimated GFR > 60 (>60) mL/min BUN/Creatinine Ratio 10.8 (6-22) Glucose 90 (70-100) mg/dL Calcium 9.7 (8.4-10.2) mg/dL Total Bilirubin 0.9 (0.2-1.3) mg/dL AST 22 (17-59) IU/L ALT 13 (<50) IU/L Alkaline Phosphatase 86 (38-126) U/L Total Protein 8.3 H (6.3-8.2) g/dL Albumin 5.1 H (3.5-5.0) g/dL Globulin 3.2 (1.7-4.1) g/dL Albumin/Globulin Ratio 1.6 (1.0-2.8) Lipase 43 (23-300) U/L Urine Color Ursula Urine Appearance Sl cloudy Urine pH 6.5 (4.5-8.0) Ur Specific Cl[place] >=1.030 H (1.000-1.035) Urine Protein 3+ H (Negative) Urine Glucose (UA) Negative (Negative) g/dL Urine Ketones Trace H (NEGATIVE) Urine Occult Blood 3+ H (Negative) Urine Nitrate Positive H (Negative) Urine Bilirubin 1+ H (NEGATIVE) Ur Bilirubin Confirm Negative (Negative) Urine Urobilinogen 1.0 (0.2) E.U./dL Ur Leukocyte Esterase Negative (NEGATIVE) Urine RBC 10-30/hpf H (0-5/HPF) Urine WBC 0-1/hpf (0-5/HPF) Ur Squamous Epith Cells 0-1 /hpf (0-5/HPF) Amorphous Sediment 1+ Urine Bacteria Many (>30) H (None) Urine Mucus 2+ H (Negative) Ur Culture Indicated? Specimen cultured Vol Urine Centrifuged 10ml (spun) Imaging Data CT scan - abdomen/pelvis: Radiologist's Impression: PROCEDURE: CT ABDOMEN PELVIS WO CON INDICATIONS: RLQ PAIN, HEMATURIA TECHNIQUE: Axial sections were acquired from the lung bases to the pubic symphysis. Coronal and sagittal reformats were performed. For radiation dose reduction, the following was used: automated exposure control, adjustment of mA and/or kV according to patient size. COMPARISON: None. FINDINGS: Image quality: Diagnostic. Lower Chest: No significant findings. URINARY: Right Kidney: No stones or hydronephrosis. Subtle medullary calcinosis. Right Ureter: No hydroureter. Left Kidney: Several tiny 1 mm stones are seen. Mild medullary calcinosis. No hydronephrosis. Left Ureter: No hydroureter. Bladder: Normal wall thickness. No stones. ABDOMEN: Liver: No contour-deforming solid mass. Gallbladder: Possible a small gallstone versus artifact. Biliary ducts: No biliary dilation. Pancreas: No ductal dilation. Spleen: Size is within normal limits. Adrenal Glands: No adrenal nodules. Stomach and Bowel: Normal small bowel and colonic caliber, without significant wall thickening. Normal appendix. Peritoneum: No abnormal intraperitoneal fluid. No free air. Ventral Wall: No hernia. Abdominal Nodes: No enlarged retroperitoneal or mesenteric lymph nodes. Vessels: Aorta and inferior vena cava are normal in size. PELVIS: Pelvic Organs: Unremarkable. Pelvic Nodes: Unremarkable. Miscellaneous: No inguinal hernias are seen. Bones: Unremarkable. Mild spondylitic changes in the lower lumbar spine. IMPRESSION: 1. Tiny 1 mm renal calculi in left kidney. 2. No definitive right kidney. 3. 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 4. Normal appendix. 5. Dictated by: Radha Vazquez M.D. on 06/01/2023 at 1:42 Approved by: Radha Vazquez M.D. on 06/01/2023 at 1:47 MDM Narrative Medical decision making narrative: Abdominal pain with nausea and vomiting, history of kidney stones. Patient's abdomen is soft but he is tender in the right lower quadrant. Labs and CT imaging ordered. Zofran, Toradol, IV fluids ordered for pain. Laboratory work is reviewed, no leukocytosis, normal renal function, no significant abnormalities and blood work. Patient did have blood, nitrites, RBCs, many bacteria on urinalysis. CT of the abdomen and pelvis showed normal appendix, small 1 mm left-sided kidney stone. Patient states that while he was in the emergency department he thinks he may have passed a stone as something dark, sharp, and red passed in his stream. Patient was informed of all lab and imaging findings, recommended urology follow up if he continues to experience pain from his stones. He was also informed of his urinalysis results and he will be started on a course of antibiotics. ED return precautions discussed at bedside. Discharge Plan Departure Patient Disposition: Home Clinical Impression: Calculus of kidney, Acute UTI Instructions: DI for Kidney Stones, DI for Urinary Tract Infection (UTI) Activity Restrictions/Additional Instructions: Your CT scan today showed that you have a small left-sided stone, but no abnormalities to explain your right-sided abdominal pain. Your appendix is normal today. You did have a urinary tract infection, which will need to be treated with antibiotics. Please make sure to drink plenty of hydrating fluids, if you have sexual intercourse urinate immediately afterwards. Please follow up with Urology, particularly if you continue to experience kidney stones and pain Prescriptions: New tamsulosin [Flomax] 0.4 mg capsule 0.4 mg PO DAILY Qty: 30 0RF ondansetron 4 mg tablet,disintegrating 4 mg PO Q8H PRN (Reason: nausea and vomiting) Qty: 30 0RF hydrocodone-acetaminophen 5-325 mg tablet 1 tab PO Q8H PRN (Reason: pain) Qty: 7 0RF sulfamethoxazole-trimethoprim [Bactrim DS] 800-160 mg tablet 1 tab PO Q12H Qty: 20 0RF No Action hydrocodone-acetaminophen 5-325 mg tablet 1 tab PO Q4-6H PRN (Reason: pain) Qty: 10 0RF ondansetron 4 mg tablet,disintegrating 4 mg PO Q6H PRN (Reason: nausea and vomiting) Qty: 14 0RF tamsulosin [Flomax] 0.4 mg capsule 0.4 mg PO DAILY Qty: 14 0RF cetirizine 5 mg tablet 10 mg PO DAILY PRN (Reason: congestion) Qty: 14 0RF albuterol sulfate 90 mcg/actuation HFA aerosol inhaler 1 puff inhalation QID PRN (Reason: shortness of breath or wheezing) Qty: 8.5 3RF magnesium oxide 420 mg tablet 420 mg PO BEDTIME Qty: 14 0RF Referrals: Reggie Guerra DO [Primary Care Provider] - Stand Alone Forms: Patient Portal/API
[2023-06-01] MEDS: MORPHINE 4 MG/ML INJ IV (01:22)
[2023-06-01] MEDS: ONDANSETRON 4 MG/2 ML INJ IV (01:22)
[2023-06-01] MEDS: SODIUM CHLORIDE 0.9% 1,000 ML 1000 ML IV (01:23)
[2023-06-01] MEDS: TRIMETH/SULFA 160/800 (DS) TABLET 1 TAB PO (02:02)
[2023-06-01 02:52] VITALS: BP 123/86; PULSE 84; RESP 15; O2SAT 97
== END 2023-06-01 02:53 | disposition home or self-care (01) ==
PROVIDERS: Emergency Provider Emergency Medicine; PCP Family Medicine
DX: N20.0 Calculus of kidney (principal); N39.0 Urinary tract infection, site not specified
CPT/HCPCS: 36415; 74176; 80053; 81001; 83690; 85025; 87086; 96361; 96374; 96375; 96376; 99284; J1885; J2270; J2405

== ENCOUNTER 2023-06-05 07:18 | Emergency (ER) | payer OTHER, MEDICAID, SELFPAY ==
[2023-06-05 07:23] VITALS: BP 160/92; PULSE 105; O2SAT 98
[2023-06-05 07:31] VITALS: BP 160/72; PULSE 105; RESP 24; TEMP 36.6; O2SAT 99; BMI 25.0
--- NOTE | 2023-06-05 07:31 | DI.RAD.S_ITS ---
PROCEDURE: XR ABDOMEN 1V INDICATIONS: R flank pain TECHNIQUE: One view of the abdomen acquired. COMPARISON: [facility], CT, CT ABDOMEN PELVIS WO CON, 05/31/2023, 23:53. FINDINGS: Surgical changes and devices: None. Bowel: Bowel gas pattern is normal. Moderate fecal debris. Soft tissues: No suspicious abdominal calcifications. Visualized solid organ contours appear normal in size. Bones: No suspicious bony lesions. IMPRESSION: Normal bowel gas pattern. Moderate fecal debris. Dictated by: Gilberto Irizarry M.D. on 06/05/2023 at 8:10 Approved by: Gilberto Irizarry M.D. on 06/05/2023 at 8:12
--- NOTE | 2023-06-05 07:31 | DI.US.S_ITS ---
PROCEDURE: US RENAL COMPLETE INDICATIONS: R sided flank pain eval for hydro TECHNIQUE: Real-time scanning was performed of the kidneys and bladder, with image documentation. COMPARISON: None. FINDINGS: Kidneys: Kidneys are normal in size. Right kidney measures 10.8 cm long; left kidney measures 9.1 cm long. Right renal cortical thickness is 1.3 cm; left renal cortical thickness is 1.0 cm. Renal cortical echotexture is normal. No hydronephrosis or nephrolithiasis. No suspicious solid mass lesions. Bladder: Pre-void bladder volume is 0.7 mL. Post-void residual not applicable. Pre-void images demonstrate no intraluminal masses or stones. On pre-void images, no ureteral jets are noted with color Doppler interrogation. (Of note, ureteral jets may not be detectable in up to 25% of cases due to insufficient differences in specific gravity between ureteral and bladder urine). Miscellaneous: No free pelvic fluid. There is what appears to be fluid-filled bowel with a thickened wall that isn't peristalsing medial to the right kidney. IMPRESSION: 1. Negative renal ultrasound. 2. Question thickened loop of bowel without peristalsis. Comment: Preliminary findings were reported by the industrial relations officer to the referring provider at the time of study completion. Dictated by: Gilberto Irizarry M.D. on 06/05/2023 at 8:12 Approved by: Gilberto Irizarry M.D. on 06/05/2023 at 8:15
--- NOTE | 2023-06-05 07:34 | ED_ITS ---
HPI - General Adult General Chief complaint: Urogenital-Male Stated complaint: possible kidney stones Time Seen by Provider: 06/05/23 07:18 Source: patient Mode of arrival: Ambulatory Limitations: no limitations History of Present Illness HPI narrative: Patient is a 33-year-old male here for evaluation of a right sided flank and abdominal pain. He states he has a history of kidney stones. He was here approximately 5 days ago and was diagnosed with a urinary tract infection and a tiny left-sided kidney stone. He was sent home on antibiotics. He had a CT scan performed at that time which showed no right-sided stones. He has been taking the antibiotics. His medical record shows that the culture from that time has not grown out any bacteria but it was nitrite positive. He states that the pain has on his right side. He is having difficulty urinating. He also states he is having difficulty having bowel movements or passing flatus. Related Data Previous Rx's Medication Instructions Recorded albuterol sulfate 90 mcg/actuation 1 puff inhalation QID PRN 01/17/22 aerosol inhaler shortness of breath or wheezing #8.5 grams cetirizine 5 mg tablet 10 mg (2 x 5 mg) PO DAILY PRN 01/17/22 congestion #14 tabs magnesium oxide 420 mg tablet 420 mg PO BEDTIME #14 tabs 01/17/22 hydrocodone 5 mg-acetaminophen 325 1 tab PO Q4-6H PRN pain #10 tabs 03/23/22 mg tablet ondansetron 4 mg disintegrating 4 mg PO Q6H PRN nausea and 03/23/22 tablet vomiting #14 tabs tamsulosin 0.4 mg capsule (Flomax) 0.4 mg PO DAILY #14 caps 03/24/22 hydrocodone 5 mg-acetaminophen 325 1 tab PO Q8H PRN pain #7 tabs 06/01/23 mg tablet ondansetron 4 mg disintegrating 4 mg PO Q8H PRN nausea and 06/01/23 tablet vomiting #30 tabs sulfamethoxazole 800 1 tab PO Q12H #20 tabs 06/01/23 mg-trimethoprim 160 mg tablet (Bactrim DS) tamsulosin 0.4 mg capsule (Flomax) 0.4 mg PO DAILY #30 caps 06/01/23 hydrocodone 5 mg-acetaminophen 325 1 tab PO Q6H PRN pain #10 tabs 06/05/23 mg tablet ondansetron 4 mg disintegrating 4 mg PO Q8H PRN nausea and 06/05/23 tablet vomiting #10 tabs Allergies Allergy/AdvReac Type Severity Reaction Status Date / Time No Known Drug Allergies Allergy Verified 03/24/22 13:23 Review of Systems Constitutional Constitutional: Reports system reviewed and no additional complaints, except as documented Cardiovascular Cardiovascular: Reports system reviewed and no additional complaints, except as documented Respiratory Respiratory: Reports system reviewed and no additional complaints, except as documented Gastrointestinal Gastrointestinal: Reports system reviewed and no additional complaints, except as documented Genitourinary Genitourinary: Reports system reviewed and no additional complaints, except as documented Integumentary/Breasts Skin/Breast: Reports system reviewed and no additional complaints, except as documented Patient History Social History Smoking Status: Never smoker Smoking Status: Never smoker alcohol intake frequency: other Substance Use Type: does not use Exam Initial Vital Signs Initial Vital Signs: Vital Signs Pulse Rate 105 H 06/05/23 07:23 Blood Pressure 160/92 H 06/05/23 07:23 Pulse Oximetry 98 06/05/23 07:23 Const General: cooperative and No ill appearing HENMT Head: normal to inspection and normocephalic Resp Effort & Inspection: normal respiratory effort Auscultation: clear to auscultation bilaterally Cardio Rate: tachycardic Rhythm: regular rhythm GI Inspection: normal to inspection and non-distended Palpation: soft Back/Spine/Pelvis Back: No CVA tenderness Skin General: no rashes or lesions noted Extrem General: capillary refill normal Course Orders Ordered: ED Orders 06/05/23 07:30 Basic Metabolic Panel Stat Complete Blood Count AUTO DIFF Stat 06/05/23 07:31 US renal complete Stat XR abdomen 1V Stat 06/05/23 08:20 CT angio abdomen pelvis Stat Sodium Chloride (Normal Saline 0.9%) 1,000 mls @ 1,000 mls/hr IV BOLUS ONE Stop: 06/05/23 09:20 Last Admin: 06/05/23 08:42 Dose: 1,000 mls/hr Discontinued Medications Ketorolac Tromethamine (Ketorolac 30 Mg/Ml Vial) 30 mg IV NOW ONE Stop: 06/05/23 07:32 Last Admin: 06/05/23 07:47 Dose: 30 mg Documented By: MT Morphine Sulfate (Morphine 4 Mg/Ml Inj) 4 mg IV NOW ONE Stop: 06/05/23 08:21 Last Admin: 06/05/23 08:40 Dose: 4 mg Vital Signs Vital signs: Vital Signs - 8 hr 06/05/23 07:23 06/05/23 07:23 06/05/23 07:31 Temperature 97.8 F Pulse Rate 105 H 105 H Respiratory Rate 24 Blood Pressure 160/92 H 160/72 H Pulse Oximetry 98 99 Oxygen Delivery Method Room Air 06/05/23 08:43 06/05/23 08:49 06/05/23 08:49 Temperature Pulse Rate 93 H 90 Respiratory Rate Blood Pressure 143/88 H 143/88 H Pulse Oximetry 99 93 Oxygen Delivery Method 06/05/23 09:00 06/05/23 09:00 Temperature Pulse Rate 81 Respiratory Rate Blood Pressure 144/82 H Pulse Oximetry 96 Oxygen Delivery Method Medical Decision Making Medical Records Medical records reviewed: Yes I reviewed the patient's medical records. Lab Data Lab results reviewed: Yes I reviewed the patient's lab results. 06/05/23 07:30 06/05/23 07:30 Labs: Lab Results 06/05/23 Range/Units 07:30 WBC 10.1 (4.5-11.0) X10^3/uL RBC 5.23 (4.5-5.9) X10^6/uL Hgb 14.7 (13.5-17.5) g/dL Hct 43.7 (41-53) % MCV 83.5 (80-100) fL MCH 28.1 (26-34) PG MCHC 33.6 (30-36) % RDW 12.7 (11.6-14.8) % Plt Count 244 (150-400) X10^3/uL Neut % (Auto) 80.4 H (50-75) % Lymph % (Auto) 15.2 L (25-40) % [place] % (Auto) 3.5 (3-14) % Eos % (Auto) 0.5 L (2-4) % Baso % (Auto) 0.4 (0-2) % Neut # (Auto) 8100 H (6870-3343) /uL Lymph # (Auto) 1500 (4138-0275) /uL [place] # (Auto) 400 (0-900) /uL Eos # (Auto) 100 (0-450) /uL Baso # (Auto) 0 (0-100) /uL Sodium 138 (137-145) mmol/L Potassium 5.3 H D (3.4-5.1) mmol/L Chloride 104 (98-107) mmol/L Carbon Dioxide 20 L (22-32) mmol/L BUN 13 (9-20) mg/dL Creatinine 1.48 H (0.66-1.25) mg/dL Estimated GFR > 60 (>60) mL/min BUN/Creatinine Ratio 8.8 (6-22) Glucose 120 H (70-100) mg/dL Calcium 9.8 (8.4-10.2) mg/dL Imaging Data Abdominal x-ray: Radiologist's Impression: PROCEDURE: XR ABDOMEN 1V INDICATIONS: R flank pain TECHNIQUE: One view of the abdomen acquired. COMPARISON: [facility], CT, CT ABDOMEN PELVIS WO [facility], 05/31/2023, 23:53. FINDINGS: Surgical changes and devices: None. Bowel: Bowel gas pattern is normal. Moderate fecal debris. Soft tissues: No suspicious abdominal calcifications. Visualized solid organ contours appear normal in size. Bones: No suspicious bony lesions. IMPRESSION: Normal bowel gas pattern. Moderate fecal debris. renal US: Radiologist's Impression: PROCEDURE: US RENAL COMPLETE INDICATIONS: R sided flank pain eval for hydro TECHNIQUE: Real-time scanning was performed of the kidneys and bladder, with image documentation. COMPARISON: None. FINDINGS: Kidneys: Kidneys are normal in size. Right kidney measures 10.8 cm long; left kidney measures 9.1 cm long. Right renal cortical thickness is 1.3 cm; left renal cortical thickness is 1.0 cm. Renal cortical echotexture is normal. No hydronephrosis or nephrolithiasis. No suspicious solid mass lesions. Bladder: Pre-void bladder volume is 0.7 mL. Post-void residual not applicable. Pre-void images demonstrate no intraluminal masses or stones. On pre-void images, no ureteral jets are noted with color Doppler interrogation. (Of note, ureteral jets may not be detectable in up to 25% of cases due to insufficient differences in specific gravity between ureteral and bladder urine). Miscellaneous: No free pelvic fluid. There is what appears to be fluid-filled bowel with a thickened wall that isn't peristalsing medial to the right kidney. IMPRESSION: 1. Negative renal ultrasound. 2. Question thickened loop of bowel without peristalsis. Comment: Preliminary findings were reported by the marine electronics repairer to the referring provider at the time of study completion. CT scan - abdomen/pelvis: Radiologist's Impression: PROCEDURE: CT ANGIO ABDOMEN PELVIS INDICATIONS: R side flank and abd pain out of proportion TECHNIQUE: After the administration of intravenous contrast, 2.5 mm sections acquired from the diaphragm to the iliac crests. 10 mm maximum intensity projection (MIP) coronal and sagittal reformats were then performed. For radiation dose reduction, the following was used: automated exposure control. COMPARISON: [facility], CT, CT ABDOMEN PELVIS WO CON, 05/31/2023, 23:53. FINDINGS: Image quality: Diagnostic. Abdominal aorta: No aortic aneurysm or evidence of acute aortic syndrome. Mesenteric arteries: Patent without hemodynamically significant stenosis. Renal arteries: There are 3 left renal arteries in 3 right renal arteries. They are widely patent. There are no findings of fibromuscular dysplasia. No aneurysm or AVMs. Lower chest: Unremarkable. ABDOMEN: Liver: No solid mass. Gallbladder: No radiopaque gallstones or wall thickening. Finding on recent CT abdomen and pelvis without contrast was likely artifact. Biliary ducts: No biliary dilation. Pancreas: No ductal dilation. Spleen: Size is within normal limits. Adrenal Glands: No adrenal nodules. Kidneys and Ureters: No hydronephrosis. No solid mass. No complex renal cystic lesion which requires follow up. Stomach and Bowel: Normal colonic caliber, without significant wall thickening. Peritoneum: No abnormal intraperitoneal fluid. No free air. Ventral Wall: No hernia. Abdominal Nodes: No retroperitoneal or mesenteric adenopathy by size criteria. Vessels: Aorta, as above. Normal IVC. PELVIS: Pelvic Organs: Unremarkable. Bladder: Unremarkable. Pelvic Nodes: No enlarged lymph nodes. Miscellaneous: No inguinal hernias are seen. Bones: No aggressive osseous abnormality. IMPRESSION: 1. There are 3 right renal arteries and 3 left renal arteries. They are all unremarkable. 2. Unremarkable CT angiogram of the abdomen and pelvis. 3. No acute abdominal process. MDM Narrative Medical decision making narrative: Patient here for right-sided flank pain. Is the same side that he would discomfort on a couple days ago when he was here where he was diagnosed with a left-sided kidney stone and a urinary tract infection. He has no skin rashes over the area. Renal ultrasound today is unremarkable. X-ray of the abdomen is unremarkable. CTA of the abdomen pelvis once again does not show any kidney stones and no vascular pathology. No other acute intra-abdominal surgical issue. Chemistries are unremarkable. Will have him continue to take the antibiotics as he only has 2 more days left. No indication for emergent surgical consultation. He very likely will require a colonoscopy for further evaluation of potential Crohn's disease versus ulcerative colitis versus other pathology such as this. Recommended that he contact his primary doctor and he was also given contact information for General surgery at this facility. We will currently tried to treat his symptoms. He was given return precautions. He expressed understanding and agreement. Discharge Plan Departure Patient Disposition: Home Clinical Impression: Flank pain, Abdominal pain Instructions: DI for Abdominal Pain-Adult Activity Restrictions/Additional Instructions: Your workup here in the emergency department is very reassuring. The CT scans from a couple days ago and today do not show any signs of a right-sided kidney/ureteral stone. The urine culture from a couple days ago also did not grow out any bacteria however I would recommend that you finish the course of antibiotics that you have started. You do need follow-up with your primary care doctor. You were also given contact information to follow-up with general surgery has a colonoscopy maybe the next step in the workup of your discomfort. Return to the emergency department for new symptoms. Prescriptions: New ondansetron 4 mg tablet,disintegrating 4 mg PO Q8H PRN (Reason: nausea and vomiting) Qty: 10 0RF hydrocodone-acetaminophen 5-325 mg tablet 1 tab PO Q6H PRN (Reason: pain) Qty: 10 0RF No Action hydrocodone-acetaminophen 5-325 mg tablet 1 tab PO Q4-6H PRN (Reason: pain) Qty: 10 0RF ondansetron 4 mg tablet,disintegrating 4 mg PO Q6H PRN (Reason: nausea and vomiting) Qty: 14 0RF tamsulosin [Flomax] 0.4 mg capsule 0.4 mg PO DAILY Qty: 14 0RF tamsulosin [Flomax] 0.4 mg capsule 0.4 mg PO DAILY Qty: 30 0RF ondansetron 4 mg tablet,disintegrating 4 mg PO Q8H PRN (Reason: nausea and vomiting) Qty: 30 0RF hydrocodone-acetaminophen 5-325 mg tablet 1 tab PO Q8H PRN (Reason: pain) Qty: 7 0RF sulfamethoxazole-trimethoprim [Bactrim DS] 800-160 mg tablet 1 tab PO Q12H Qty: 20 0RF cetirizine 5 mg tablet 10 mg PO DAILY PRN (Reason: congestion) Qty: 14 0RF albuterol sulfate 90 mcg/actuation HFA aerosol inhaler 1 puff inhalation QID PRN (Reason: shortness of breath or wheezing) Qty: 8.5 3RF magnesium oxide 420 mg tablet 420 mg PO BEDTIME Qty: 14 0RF Referrals: Reggie Guerra DO [Primary Care Provider] - Adal Marina MD [Physician] - Stand Alone Forms: Patient Portal/API
[2023-06-05 07:38] LABS: Add Manual Diff / Slide Review NO; Basophils Absolute Auto 0 /uL (0-100); Basophils Percent Auto 0.4 % (0-2); Eosinophils Absolute Auto 100 /uL (0-450); Eosinophils Percent Auto 0.5 % (2-4); Hematocrit 43.7 % (41-53); Hemoglobin 14.7 g/dL (13.5-17.5); Lymphocytes Absolute Auto 1500 /uL (1100-4500); Lymphocytes Percent Auto 15.2 % (25-40); Mean Corpuscular HGB Conc 33.6 % (30-36); Mean Corpuscular Hemoglobin 28.1 PG (26-34); Mean Corpuscular Volume 83.5 fL (80-100); Monocytes Absolute Auto 400 /uL (0-900); Monocytes Percent Auto 3.5 % (3-14); Neutrophils Absolute Auto 8100 /uL (1500-7000); Neutrophils Percent Auto 80.4 % (50-75); Platelet Count 244 X10^3/uL (150-400); Red Blood Cell Count 5.23 X10^6/uL (4.5-5.9); Red Cell Distribution Width 12.7 % (11.6-14.8); White Blood Cell Count 10.1 X10^3/uL (4.5-11.0)
[2023-06-05] MEDS: KETOROLAC 30 MG/ML VIAL IV (07:47)
[2023-06-05 07:50] LABS: BUN Creatinine Ratio 8.8 (6-22); Blood Urea Nitrogen 13 mg/dL (9-20); Calcium 9.8 mg/dL (8.4-10.2); Carbon Dioxide 20 mmol/L (22-32); Chloride 104 mmol/L (98-107); Estimated Glomerular Filt Rate > 60 mL/min (>60); Glucose 120 mg/dL (70-100); Potassium 5.3 mmol/L (3.4-5.1); Sodium 138 mmol/L (137-145)
[2023-06-05 07:51] LABS: HEMOLYSIS 229 (0-50)
--- NOTE | 2023-06-05 08:20 | DI.CT.S_ITS ---
PROCEDURE: CT ANGIO ABDOMEN PELVIS INDICATIONS: R side flank and abd pain out of proportion TECHNIQUE: After the administration of intravenous contrast, 2.5 mm sections acquired from the diaphragm to the iliac crests. 10 mm maximum intensity projection (MIP) coronal and sagittal reformats were then performed. For radiation dose reduction, the following was used: automated exposure control. COMPARISON: [facility], CT, CT ABDOMEN PELVIS WO CON, 05/31/2023, 23:53. FINDINGS: Image quality: Diagnostic. Abdominal aorta: No aortic aneurysm or evidence of acute aortic syndrome. Mesenteric arteries: Patent without hemodynamically significant stenosis. Renal arteries: There are 3 left renal arteries in 3 right renal arteries. They are widely patent. There are no findings of fibromuscular dysplasia. No aneurysm or AVMs. Lower chest: Unremarkable. ABDOMEN: Liver: No solid mass. Gallbladder: No radiopaque gallstones or wall thickening. Finding on recent CT abdomen and pelvis without contrast was likely artifact. Biliary ducts: No biliary dilation. Pancreas: No ductal dilation. Spleen: Size is within normal limits. Adrenal Glands: No adrenal nodules. Kidneys and Ureters: No hydronephrosis. No solid mass. No complex renal cystic lesion which requires follow up. Stomach and Bowel: Normal colonic caliber, without significant wall thickening. Peritoneum: No abnormal intraperitoneal fluid. No free air. Ventral Wall: No hernia. Abdominal Nodes: No retroperitoneal or mesenteric adenopathy by size criteria. Vessels: Aorta, as above. Normal IVC. PELVIS: Pelvic Organs: Unremarkable. Bladder: Unremarkable. Pelvic Nodes: No enlarged lymph nodes. Miscellaneous: No inguinal hernias are seen. Bones: No aggressive osseous abnormality. IMPRESSION: 1. There are 3 right renal arteries and 3 left renal arteries. They are all unremarkable. 2. Unremarkable CT angiogram of the abdomen and pelvis. 3. No acute abdominal process. Dictated by: Gilberto Irizarry M.D. on 06/05/2023 at 8:48 Approved by: Gilberto Irizarry M.D. on 06/05/2023 at 8:52
[2023-06-05] MEDS: MORPHINE 4 MG/ML INJ IV (08:40)
[2023-06-05] MEDS: SODIUM CHLORIDE 0.9% 1,000 ML 1000 ML IV (08:42)
[2023-06-05 08:43] VITALS: BP 143/88; PULSE 93; O2SAT 99
[2023-06-05 08:49] VITALS: BP 143/88; PULSE 90; O2SAT 93
[2023-06-05 09:00] VITALS: BP 144/82; PULSE 81; O2SAT 96
== END 2023-06-05 09:14 | disposition home or self-care (01) ==
PROVIDERS: Emergency Provider Emergency Medicine; PCP Family Medicine
DX: R10.9 Unspecified abdominal pain (principal)
CPT/HCPCS: 74018; 74174; 76770; 80048; 85025; J1885; J2270; Q9967

== ENCOUNTER 2023-06-05 13:19 | Observation (INO) | payer OTHER, MEDICAID, SELFPAY ==
[2023-06-05] VITALS (12 sets, daily range): BP systolic 127–189; BP diastolic 72–109; PULSE 58–99; RESP 16–18; TEMP 36.1–36.4; O2SAT 55–100; BMI 22.4; BMI 21.4
[2023-06-05 13:59] LABS: Add Manual Diff / Slide Review NO; Basophils Absolute Auto 0 /uL (0-100); Basophils Percent Auto 0.2 % (0-2); Eosinophils Absolute Auto 0 /uL (0-450); Hematocrit 42.1 % (41-53); Hemoglobin 13.9 g/dL (13.5-17.5); Lymphocytes Absolute Auto 1100 /uL (1100-4500); Lymphocytes Percent Auto 8.3 % (25-40); Mean Corpuscular Hemoglobin 27.9 PG (26-34); Mean Corpuscular Volume 84.4 fL (80-100); Monocytes Absolute Auto 800 /uL (0-900); Monocytes Percent Auto 6.2 % (3-14); Neutrophils Absolute Auto 10900 /uL (1500-7000); Neutrophils Percent Auto 85.3 % (50-75); Platelet Count 229 X10^3/uL (150-400); Red Blood Cell Count 4.99 X10^6/uL (4.5-5.9); Red Cell Distribution Width 12.2 % (11.6-14.8); White Blood Cell Count 12.7 X10^3/uL (4.5-11.0)
[2023-06-05 14:05] LABS: Alanine Aminotransferase 14 IU/L (<50); Albumin 4.9 g/dL (3.5-5.0); Albumin Globulin Ratio 1.6 (1.0-2.8); Alkaline Phosphatase 79 U/L (38-126); Aspartate Aminotransferase 26 IU/L (17-59); BUN Creatinine Ratio 7.4 (6-22); Blood Urea Nitrogen 14 mg/dL (9-20); Calcium 9.7 mg/dL (8.4-10.2); Carbon Dioxide 19 mmol/L (22-32); Chloride 108 mmol/L (98-107); Estimated Glomerular Filt Rate 48 mL/min (>60); Glucose 96 mg/dL (70-100); HEMOLYSIS < 15 (0-50); Lipase 36 U/L (23-300); Potassium 3.9 mmol/L (3.4-5.1); Sodium 139 mmol/L (137-145); Total Protein 7.9 g/dL (6.3-8.2)
[2023-06-05] MEDS: HYDROMORPHONE 1 MG INJ IV (14:14)
[2023-06-05] MEDS: DICYCLOMINE 10 MG CAPSULE PO (14:14)
--- NOTE | 2023-06-05 14:28 | ED.GENADULT ---
HPI - General Adult General Chief complaint: Urogenital-Male Stated complaint: back was here this morning feeling worst Time Seen by Provider: 06/05/23 13:48 Source: patient Mode of arrival: Ambulatory History of Present Illness HPI narrative: Patient is a 33-year-old male. I evaluated him here earlier in my shift for right-sided abdominal pain. Had labs that were unremarkable. Renal ultrasound is unremarkable. CTA of the abdomen and pelvis that was unremarkable. Was subsequently discharged home with nausea medication and pain medication. He states that since being discharged home his nausea has gotten worse. His pain has gotten worse. No fevers. Pain continues to be on his right side. Related Data Previous Rx's Medication Instructions Recorded albuterol sulfate 90 mcg/actuation 1 puff inhalation QID PRN 01/17/22 aerosol inhaler shortness of breath or wheezing #8.5 grams cetirizine 5 mg tablet 10 mg (2 x 5 mg) PO DAILY PRN 01/17/22 congestion #14 tabs magnesium oxide 420 mg tablet 420 mg PO BEDTIME #14 tabs 01/17/22 hydrocodone 5 mg-acetaminophen 325 1 tab PO Q4-6H PRN pain #10 tabs 03/23/22 mg tablet ondansetron 4 mg disintegrating 4 mg PO Q6H PRN nausea and 03/23/22 tablet vomiting #14 tabs tamsulosin 0.4 mg capsule (Flomax) 0.4 mg PO DAILY #14 caps 03/24/22 hydrocodone 5 mg-acetaminophen 325 1 tab PO Q8H PRN pain #7 tabs 06/01/23 mg tablet ondansetron 4 mg disintegrating 4 mg PO Q8H PRN nausea and 06/01/23 tablet vomiting #30 tabs sulfamethoxazole 800 1 tab PO Q12H #20 tabs 06/01/23 mg-trimethoprim 160 mg tablet (Bactrim DS) tamsulosin 0.4 mg capsule (Flomax) 0.4 mg PO DAILY #30 caps 06/01/23 hydrocodone 5 mg-acetaminophen 325 1 tab PO Q6H PRN pain #10 tabs 06/05/23 mg tablet ondansetron 4 mg disintegrating 4 mg PO Q8H PRN nausea and 06/05/23 tablet vomiting #10 tabs Allergies Allergy/AdvReac Type Severity Reaction Status Date / Time No Known Drug Allergies Allergy Verified 06/05/23 13:47 Review of Systems Constitutional Constitutional: Reports system reviewed and no additional complaints, except as documented Gastrointestinal Gastrointestinal: Reports system reviewed and no additional complaints, except as documented Genitourinary Genitourinary: Reports system reviewed and no additional complaints, except as documented Musculoskeletal Musculoskeletal: Reports system reviewed and no additional complaints, except as documented Integumentary/Breasts Skin/Breast: Reports system reviewed and no additional complaints, except as documented Patient History Social History Smoking Status: Never smoker Smoking Status: Never smoker alcohol intake frequency: other Substance Use Type: does not use Exam Initial Vital Signs Initial Vital Signs: Vital Signs Temperature 97.5 F L 06/05/23 13:35 Pulse Rate 91 H 06/05/23 13:35 Respiratory Rate 17 06/05/23 13:35 Blood Pressure 141/86 H 06/05/23 13:35 Pulse Oximetry 100 06/05/23 13:35 Oxygen Delivery Method Room Air 06/05/23 13:35 Const General: cooperative and comfortable Resp Effort & Inspection: normal respiratory effort Cardio Rate: regular rate GI Inspection: normal to inspection and non-distended Palpation: soft, No firm, No guarding and tender Skin General: no rashes or lesions noted Neuro General: patient alert, patient awake and moves all extremities Extrem General: capillary refill normal Course Orders Ordered: ED Orders 06/05/23 13:35 Complete Blood Count AUTO DIFF Stat Comprehensive Metabolic Panel Stat Lipase Stat 06/05/23 14:39 US abdomen limited Stat 06/05/23 18:50 Urine Drug Screen, Rapid Stat Discontinued Medications Dicyclomine HCl (Dicyclomine 10 Mg Capsule) 10 mg PO NOW ONE Stop: 06/05/23 13:49 Last Admin: 06/05/23 14:14 Dose: 10 mg Documented By: TRISTA Hydromorphone HCl (Hydromorphone 1 Mg Inj) 1 mg IM NOW ONE Stop: 06/05/23 13:49 Last Admin: 06/05/23 13:53 Dose: Not Given Documented By: TRISTA(2) Hydromorphone HCl (Hydromorphone 1 Mg Inj) 1 mg IV NOW ONE Stop: 06/05/23 13:52 Last Admin: 06/05/23 14:14 Dose: 1 mg Documented By: TRISTA Lorazepam (Lorazepam 2 Mg/Ml Inj) 1 mg IV NOW ONE Stop: 06/05/23 16:17 Last Admin: 06/05/23 16:30 Dose: 1 mg Documented By: TRISTA Metoclopramide HCl (Metoclopramide 10 Mg/2 Ml Inj) 10 mg IV NOW ONE Stop: 06/05/23 14:29 Last Admin: 06/05/23 14:42 Dose: 10 mg Documented By: TRISTA(2) Ondansetron HCl (Ondansetron 4 Mg/2 Ml Inj) 4 mg IV NOW ONE Stop: 06/05/23 14:29 Last Admin: 06/05/23 14:42 Dose: 4 mg Documented By: TRISTA(2) Pantoprazole Sodium (Pantoprazole 40 Mg Vial) 40 mg IV NOW ONE Stop: 06/05/23 18:51 Vital Signs Vital signs: Vital Signs - 8 hr 06/05/23 13:35 06/05/23 13:36 06/05/23 14:00 Temperature 97.5 F L Pulse Rate 91 H 99 H 71 Respiratory Rate 17 Blood Pressure 141/86 H 132/109 H 171/78 H Pulse Oximetry 100 100 99 Oxygen Delivery Method Room Air Room Air Room Air 06/05/23 14:20 06/05/23 14:30 06/05/23 14:45 Temperature Pulse Rate 94 H 78 91 H Respiratory Rate Blood Pressure 189/107 H 158/89 H 135/77 Pulse Oximetry 100 99 100 Oxygen Delivery Method Room Air Room Air Room Air 06/05/23 15:50 06/05/23 17:06 06/05/23 17:55 Temperature Pulse Rate 58 L 78 77 Respiratory Rate 16 18 16 Blood Pressure 140/80 127/76 158/92 H Pulse Oximetry 100 99 Oxygen Delivery Method Room Air Room Air Medical Decision Making Medical Records Medical records reviewed: Yes I reviewed the patient's medical records. Lab Data Lab results reviewed: Yes I reviewed the patient's lab results. 06/05/23 13:35 06/05/23 13:35 Labs: Lab Results 06/05/23 Range/Units 13:35 WBC 12.7 H (4.5-11.0) X10^3/uL RBC 4.99 (4.5-5.9) X10^6/uL Hgb 13.9 (13.5-17.5) g/dL Hct 42.1 (41-53) % MCV 84.4 (80-100) fL MCH 27.9 (26-34) PG MCHC 33.0 (30-36) % RDW 12.2 (11.6-14.8) % Plt Count 229 (150-400) X10^3/uL Neut % (Auto) 85.3 H (50-75) % Lymph % (Auto) 8.3 L (25-40) % [place] % (Auto) 6.2 (3-14) % Eos % (Auto) 0.0 L (2-4) % Baso % (Auto) 0.2 (0-2) % Neut # (Auto) 78715 H (1534-1463) /uL Lymph # (Auto) 1100 (5313-4059) /uL [place] # (Auto) 800 (0-900) /uL Eos # (Auto) 0 (0-450) /uL Baso # (Auto) 0 (0-100) /uL Sodium 139 (137-145) mmol/L Potassium 3.9 D (3.4-5.1) mmol/L Chloride 108 H (98-107) mmol/L Carbon Dioxide 19 L (22-32) mmol/L BUN 14 (9-20) mg/dL Creatinine 1.89 H (0.66-1.25) mg/dL Estimated GFR 48 L (>60) mL/min BUN/Creatinine Ratio 7.4 (6-22) Glucose 96 (70-100) mg/dL Calcium 9.7 (8.4-10.2) mg/dL Total Bilirubin 1.0 (0.2-1.3) mg/dL AST 26 (17-59) IU/L ALT 14 (<50) IU/L Alkaline Phosphatase 79 (38-126) U/L Total Protein 7.9 (6.3-8.2) g/dL Albumin 4.9 (3.5-5.0) g/dL Globulin 3.0 (1.7-4.1) g/dL Albumin/Globulin Ratio 1.6 (1.0-2.8) Lipase 36 (23-300) U/L Imaging Data US - abdomen: Radiologist's Impression: PROCEDURE: US ABDOMEN LIMITED INDICATIONS: RUQ pain eval for GB pathology TECHNIQUE: Real-time scanning was performed of the abdominal and retroperitoneal organs, with image documentation. COMPARISON: None. FINDINGS: Liver: Liver is normal in size and homogeneous in echotexture. Main portal vein is patent with normal hepatopetal flow. Gallbladder: No gallstones. No wall thickening. No pericholecystic edema. Negative sonographic Munoz's sign. Biliary ducts: Intrahepatic bile ducts are non-dilated. Extrahepatic bile duct caliber measures 6.2 mm. Normal is 6-7 mm or less in diameter, or 10 mm or less post-cholecystectomy. Pancreas: Visualized portions of the pancreas are sonographically normal. Miscellaneous: No free abdominal fluid. IMPRESSION: No cholelithiasis or sonographic evidence of acute cholecystitis. MDM Narrative Medical decision making narrative: Patient continues to have right-sided abdominal pain. Given his workup over the past 24 hours he has had a renal ultrasound, CTA of his abdomen and pelvis, right upper quadrant ultrasound and labs all of which show no acute pathology. Patient has been unable to tolerate any oral intake despite multiple antinausea medication and pain medication. The currently is no indication for antibiotics. No indication for emergent surgical consultation however he was unable to tolerate any oral intake. Discussed the case with Dr. Arevalo on-call for hospital medicine who will admit. Discussed the need for admission with the patient. He expressed understanding and agreement as well Discharge Plan Departure Patient Disposition: Admitted as Observation Clinical Impression: Intractable nausea, Abdominal pain
--- NOTE | 2023-06-05 14:39 | DI.US.S_ITS ---
PROCEDURE: US ABDOMEN LIMITED INDICATIONS: RUQ pain eval for GB pathology TECHNIQUE: Real-time scanning was performed of the abdominal and retroperitoneal organs, with image documentation. COMPARISON: None. FINDINGS: Liver: Liver is normal in size and homogeneous in echotexture. Main portal vein is patent with normal hepatopetal flow. Gallbladder: No gallstones. No wall thickening. No pericholecystic edema. Negative sonographic Munoz's sign. Biliary ducts: Intrahepatic bile ducts are non-dilated. Extrahepatic bile duct caliber measures 6.2 mm. Normal is 6-7 mm or less in diameter, or 10 mm or less post-cholecystectomy. Pancreas: Visualized portions of the pancreas are sonographically normal. Miscellaneous: No free abdominal fluid. IMPRESSION: No cholelithiasis or sonographic evidence of acute cholecystitis. Approved by: Radha Hunter M.D.,Ph.D. on 06/05/2023 at 15:34
[2023-06-05] MEDS: METOCLOPRAMIDE 10 MG/2 ML INJ IV (14:42)
[2023-06-05] MEDS: ONDANSETRON 4 MG/2 ML INJ IV ×3 (14:42→23:26)
[2023-06-05] MEDS: LORazepam 2 MG/ML INJ 1 MG IV (16:30)
--- NOTE | 2023-06-05 18:27 | PC.NURSE ---
Pt failed PO challenge. Physician aware.
[2023-06-05] MEDS: PANTOPRAZOLE 40 MG VIAL IV (19:12)
[2023-06-05] MEDS: SODIUM CHLORIDE 0.9% 1,000 ML 1000 ML IV (19:35)
--- NOTE | 2023-06-05 19:36 | PC.NURSE ---
attempted to get urine from patient he said his symptoms had returned so he could not provide one at this time.
[2023-06-05] MEDS: HYDROMORPHONE 0.5 MG INJ IV (19:37)
--- NOTE | 2023-06-05 21:13 | P.HP_ITS ---
History of Present Illness History of Present Illness Date Patient Seen: 06/05/23 Time Patient Seen: 21:00 Chief complaint: Nausea, vomiting, abdominal pain Narrative: 33 y/o with PMH of renal colic, diagnosed with UTI 4 days ago in the ED and given Bactrim. He was seen in the ED earlier today for nausea, vomiting and right-sided abdominal pain and discharged home with [place] and Zofran after he had negative workup. He came again, brought by his brother, with intractable N/V and pain. This time with GAY. In the ED he was given IVFs, antiemetic and iv narcotic. Symptoms improved at the time of admission. [facility] Social History household members: family Smoking Status: Never smoker alcohol intake: former Meds Home Medications and Allergies Home Medications Medication Instructions Recorded Confirmed Type albuterol sulfate 90 mcg/actuation 1 puff inhalation QID PRN 01/17/22 06/05/23 Rx aerosol inhaler shortness of breath or wheezing #8.5 grams cetirizine 5 mg tablet 10 mg (2 x 5 mg) PO DAILY PRN 01/17/22 Rx congestion #14 tabs magnesium oxide 420 mg tablet 420 mg PO BEDTIME #14 tabs 01/17/22 Rx hydrocodone 5 mg-acetaminophen 325 1 tab PO Q4-6H PRN pain #10 tabs 03/23/22 03/24/22 Rx mg tablet ondansetron 4 mg disintegrating 4 mg PO Q6H PRN nausea and 03/23/22 03/24/22 Rx tablet vomiting #14 tabs tamsulosin 0.4 mg capsule (Flomax) 0.4 mg PO DAILY #14 caps 03/24/22 Rx hydrocodone 5 mg-acetaminophen 325 1 tab PO Q8H PRN pain #7 tabs 06/01/23 Rx mg tablet ondansetron 4 mg disintegrating 4 mg PO Q8H PRN nausea and 06/01/23 06/05/23 Rx tablet vomiting #30 tabs sulfamethoxazole 800 1 tab PO Q12H #20 tabs 06/01/23 Rx mg-trimethoprim 160 mg tablet (Bactrim DS) tamsulosin 0.4 mg capsule (Flomax) 0.4 mg PO DAILY #30 caps 06/01/23 Rx hydrocodone 5 mg-acetaminophen 325 1 tab PO Q6H PRN pain #10 tabs 06/05/23 Rx mg tablet ondansetron 4 mg disintegrating 4 mg PO Q8H PRN nausea and 06/05/23 Rx tablet vomiting #10 tabs sulfamethoxazole 800 1 tab PO BID 06/05/23 06/05/23 History mg-trimethoprim 160 mg tablet tamsulosin 0.4 mg capsule 0.4 mg PO DAILY 06/05/23 06/05/23 History Allergies Allergy/AdvReac Type Severity Reaction Status Date / Time No Known Drug Allergies Allergy Verified 06/05/23 13:47 Review of Systems Constitutional Comments: w/o fever or chills Feels weak Cardiovascular Comments: w/o chest pain or palpitations Respiratory Comments: w/o cough or shortness of breath Gastrointestinal Comments: see HPI - Nausea, vomiting, RUQ and RLQ diffuse, episodic pain, few loose BMs. Without dark or bloody stool, w/o blood in vomitus. Genitourinary Comments: w/o dysuria Exam Vital Signs (past 8 hours): - 06/05/23 13:35 06/05/23 13:36 06/05/23 14:00 Temperature 97.5 F L Pulse Rate 91 H 99 H 71 Respiratory Rate 17 Blood Pressure 141/86 H 132/109 H 171/78 H Pulse Oximetry 100 100 99 Oxygen Delivery Method Room Air Room Air Room Air 06/05/23 14:20 06/05/23 14:30 06/05/23 14:45 Temperature Pulse Rate 94 H 78 91 H Respiratory Rate Blood Pressure 189/107 H 158/89 H 135/77 Pulse Oximetry 100 99 100 Oxygen Delivery Method Room Air Room Air Room Air 06/05/23 15:50 06/05/23 17:06 06/05/23 17:55 Temperature Pulse Rate 58 L 78 77 Respiratory Rate 16 18 16 Blood Pressure 140/80 127/76 158/92 H Pulse Oximetry 100 99 Oxygen Delivery Method Room Air Room Air 06/05/23 18:30 06/05/23 19:20 06/05/23 20:05 Temperature 96.9 F L Pulse Rate 77 83 84 Respiratory Rate 18 18 16 Blood Pressure 135/74 130/72 128/84 Pulse Oximetry 99 55 L 98 Oxygen Delivery Method Room Air Oxygen Delivery Method Room Air Const Other: Appears sleepy, tired, brother at bedside HENLA Other: dry mouith Eyes Other: EOMI Neck Other: supple Resp Other: normal respiratory effort Cardio Other: RRR GI Other: not distended Skin Other: pale, not jaundiced Extrem Other: w/o swelling Objective Labs 06/05/23 13:35 06/05/23 13:35 Labs: Laboratory Results - last 24 hr 06/05/23 13:35 WBC 12.7 H RBC 4.99 Hgb 13.9 Hct 42.1 MCV 84.4 MCH 27.9 MCHC 33.0 RDW 12.2 Plt Count 229 Neut % (Auto) 85.3 H Lymph % (Auto) 8.3 L [place] % (Auto) 6.2 Eos % (Auto) 0.0 L Baso % (Auto) 0.2 Neut # (Auto) 97647 H Lymph # (Auto) 1100 [place] # (Auto) 800 Eos # (Auto) 0 Baso # (Auto) 0 Sodium 139 Potassium 3.9 D Chloride 108 H Carbon Dioxide 19 L BUN 14 Creatinine 1.89 H Estimated GFR 48 L BUN/Creatinine Ratio 7.4 Glucose 96 Calcium 9.7 Total Bilirubin 1.0 AST 26 ALT 14 Alkaline Phosphatase 79 Total Protein 7.9 Albumin 4.9 Globulin 3.0 Albumin/Globulin Ratio 1.6 Lipase 36 Assessment & Plan Assessment and plan (1) Intractable nausea: Status: Acute (2) Abdominal pain: Status: Acute (3) GAY (acute kidney injury): Status: Acute Assessment & Plan narrative: 1. Nausea, Vomiting, Abdominal Pain - intractable - had similar episode in the past with renal colic - UTI diagnosed 4 days ago - workup unremarkable - placed in observation for IVFs antiemetics and pain control, unable to hold PO - urine toxscreen pending - stool for C diff pending 2. GAY - recent UTI, Bactrim in the last few days and poor oral intake - IVFs - BMP in AM 3. Diarrhea - on Bactrim - stool for C diff DVT prophylaxis - SCDs Quality VTE Deep Vein Thrombosis/Pulmonary Embolism Present on Admission: No
[2023-06-05] MEDS: SODIUM CHLORIDE 0.45% 1,000 ML 100 ML IV (21:31)
[2023-06-06 05:06] LABS: UR Morphine/Opiate cutoff 300 Positive (Negative); Ur Creatinine Normal (Normal); Ur Specific Gravity Normal (Normal); Urine Amphetamines Negative (Negative); Urine Barbiturates Negative (Negative); Urine Benzodiazepines Positive (Negative); Urine Cocaine Negative (Negative); Urine MDMA Negative (Negative); Urine Methadone Negative (Negative); Urine Methamphetamines Negative (Negative); Urine Oxycodone Negative (Negative); Urine Phencyclidine Negative (Negative); Urine Tetrahydrocannabinol Positive (Negative); Urine Tricyclic Antidepressant Negative (Negative); Urine pH Normal (Normal)
[2023-06-06 05:39] VITALS: BP 126/85; PULSE 91; RESP 16; TEMP 36.6; O2SAT 99
--- NOTE | 2023-06-06 05:42 | RT ---
pt has albuterol on med list QID prn as needed gave treatment at 0542 do to tightness in the chest on arrival pt was tripoding put in the request to doctor k to please put an order in according to pt medication list Pt feels better after tx and feels he can go back to sleep
[2023-06-06] MEDS: ALBUTEROL 2.5 MG/3 ML NEB (ADULT) INH ×2 (05:48→09:26)
[2023-06-06 07:08] LABS: Add Manual Diff / Slide Review NO; Basophils Absolute Auto 0 /uL (0-100); Basophils Percent Auto 0.1 % (0-2); Eosinophils Absolute Auto 0 /uL (0-450); Eosinophils Percent Auto 0.1 % (2-4); Hematocrit 40.8 % (41-53); Hemoglobin 13.5 g/dL (13.5-17.5); Lymphocytes Absolute Auto 1400 /uL (1100-4500); Lymphocytes Percent Auto 14.3 % (25-40); Mean Corpuscular HGB Conc 33.1 % (30-36); Mean Corpuscular Volume 84.5 fL (80-100); Monocytes Absolute Auto 600 /uL (0-900); Monocytes Percent Auto 5.8 % (3-14); Neutrophils Absolute Auto 7800 /uL (1500-7000); Neutrophils Percent Auto 79.7 % (50-75); Platelet Count 212 X10^3/uL (150-400); Red Blood Cell Count 4.82 X10^6/uL (4.5-5.9); Red Cell Distribution Width 12.3 % (11.6-14.8); White Blood Cell Count 9.8 X10^3/uL (4.5-11.0)
[2023-06-06 07:24] LABS: BUN Creatinine Ratio 12.4 (6-22); Blood Urea Nitrogen 16 mg/dL (9-20); Calcium 9.4 mg/dL (8.4-10.2); Carbon Dioxide 20 mmol/L (22-32); Chloride 106 mmol/L (98-107); Estimated Glomerular Filt Rate > 60 mL/min (>60); Glucose 90 mg/dL (70-100); HEMOLYSIS < 15 (0-50); Potassium 4.5 mmol/L (3.4-5.1); Sodium 139 mmol/L (137-145)
[2023-06-06] MEDS: HYDROMORPHONE 1 MG INJ IV ×3 (07:42→15:21)
[2023-06-06] MEDS: SODIUM CHLORIDE 0.45% 1,000 ML 100 ML IV (07:43)
[2023-06-06 08:16] VITALS: BP 137/83; PULSE 78; RESP 16; TEMP 36.7; O2SAT 92
[2023-06-06 09:26] VITALS: PULSE 78; RESP 18
[2023-06-06 10:16] LABS: Appearance Urine UA CLEAR; Bilirubin Urine UA 1+ (NEGATIVE); Color Urine UA YELLOW; Glucose Urine UA NEGATIVE (Negative); Ketones Urine UA 3+ (NEGATIVE); Leukocyte Esterase Urine UA NEGATIVE (NEGATIVE); Nitrite Urine UA NEGATIVE (Negative); Occult Blood Urine UA NEGATIVE (Negative); Protein Urine UA TRACE (Negative); Specific Gravity Urine UA >=1.030 (1.000-1.035); Urobilinogen Urine UA 0.2 E.U./dL (0.2)
[2023-06-06 10:31] LABS: Bacteria Urine None Seen; Culture Indicated Urine Cult Not Indicated; Ictotest Urine Negative (Negative); Mucus Urine 1+ (Negative); RBC Urine 0-1/HPF (0-5/HPF); Squamous Epithelial Cell Urine 0-1 /HPF (0-5/HPF); Urine Volume 10mL (spun); WBC Urine 1-5/HPF (0-5/HPF)
[2023-06-06] MEDS: ONDANSETRON 4 MG/2 ML INJ IV ×2 (12:04→15:34)
--- NOTE | 2023-06-06 14:49 | CM.DANOTE ---
Initial DCP Assessment Note Pt is a 33 yo male, resident of [place], presents with Nausea, vomiting, abdominal pain with recent dx of UTI, admitted OBS for further work up and IVFs, antiemetic and iv narcotic. PCP: Reggie Guerra Payer: Kee/PADMINI Reviewed chart, pt discussed in multidisciplinary rounds this morning. Patient had symptom improvement shorty after admission. Patient cleared for return home w/family to assist and pt has planned for home, DC order has been initiated. No barriers identified at this time to patient's safe discharge home w/family to assist; close outpatient f/u recommended. CM team will plan to follow closely in case any DC needs or concerns arise. SHAHRIAR Salmon Discharge Planning/Care Management CM Discharge Assessment Start: 06/06/23 14:48 Freq: Status: Active Protocol: Document 06/06/23 14:48 NIA (Rec: 06/06/23 14:49 NIA [id number]) Discharge Planning Assessment Assigned Security Control Room Officer SHAHRIAR Sam DPOA/Assigned Designee Name Gerardo Shannon, Father Contact Information [phone] Advance Directives? No History Provided By Patient,Medical Record Prior Living Arrangements House Household Members family Type of transporation used prior to Drives own vehicle admit Independent with ADL's Yes Is patient alert and oriented? Yes Barriers to Discharge No Discharge Plan Home Transportation Arrangement Family Referrals Initiated None needed
[2023-06-06 16:00] VITALS: BP 132/66; PULSE 88; RESP 17; TEMP 36.6; O2SAT 98
--- NOTE | 2023-06-06 16:39 | PC.NURSE ---
Pt's clothing and cell phone and shoes with pt at time of discharge. All questions answered, VSS, afebrile and pain and nausea/vomiting controlled prior to discharge. Pt discharged home and all discharge instruction went over with pt and family member.
--- NOTE | 2023-06-06 16:43 | P.DS_ITS ---
History of Present Illness History of Present Illness Date Patient Seen: 06/06/23 Time Patient Seen: 11:10 Chief complaint: Nausea, vomiting, abdominal pain Narrative: Per admitting provider, 33 y/o with PMH of renal colic, diagnosed with UTI 4 days ago in the ED and given Bactrim. He was seen in the ED earlier today for nausea, vomiting and right-sided abdominal pain and discharged home with [place] and Zofran after he had negative workup. He came again, brought by his brother, with intractable N/V and pain. This time with GAY. In the ED he was given IVFs, antiemetic and iv narcotic. Symptoms improved at the time of admission. Discharge Providers Provider Date of admission: 06/05/23 18:51 Discharge Date: 06/06/23 Primary care physician: Reggie Guerra DO Discharge provider: Parminder Giron DO Summary Hospital Course Discharge Diagnosis: #nausea and vomiting, improved #GAY, improved #diarrhea, resolved #weight loss Hospital Course: This is a 33 year old male with recent difficulties with nephrolithiasis who presented with nausea, vomiting, diarrhea and abdominal pain. He was admitted when labs showed an GAY. Imaging showed no urinary stones and no urologic obstruction. He had recently received bactrim for UTI. This was held, UA was repeated and not inidicative of current or continued infection with improvement from prior studies. Previous cultures also had been without growth. He also reported 50 lb weight loss, but no melena, BRBPR, or hematemesis. C diff testing was unable to be performed as his stool was solid. He was given IV fluids, his creatinine improved and he felt much improved and was tolerating a diet. Symptoms may be due to a viral enteritis, kidney stone, or I suspect reaction to bactrim (GI symptoms and rise in cr.). I changed his antibiotic to augmentin on discharge from bactrim to complete previous treatment of acute cystitis. I would consider referral for EGD and colonoscopy for further evaluation with primary care provider, given no anemia, melana or bright red blood reported by patient. Time Spent with Patient Time spent: Less than 30 minutes Exam Vital Signs (past 8 hours): - 06/06/23 09:26 06/06/23 16:00 Temperature 97.8 F Pulse Rate 78 88 Respiratory Rate 18 17 Blood Pressure 132/66 Pulse Oximetry 98 Oxygen Delivery Method Room Air Oxygen Flow Rate 0 Oxygen Delivery Method Room Air Oxygen Flow Rate 0 Narrative Exam Narrative: Gen: thin male, no acute distress, sitting upright in bed Objective Labs 06/06/23 05:30 06/06/23 05:30 Labs: Laboratory Results - last 24 hr 06/06/23 06/06/23 06/06/23 04:53 05:30 10:00 WBC 9.8 RBC 4.82 Hgb 13.5 Hct 40.8 L MCV 84.5 MCH 28.0 MCHC 33.1 RDW 12.3 Plt Count 212 Neut % (Auto) 79.7 H Lymph % (Auto) 14.3 L [place] % (Auto) 5.8 Eos % (Auto) 0.1 L Baso % (Auto) 0.1 Neut # (Auto) 7800 H Lymph # (Auto) 1400 [place] # (Auto) 600 Eos # (Auto) 0 Baso # (Auto) 0 Sodium 139 Potassium 4.5 Chloride 106 Carbon Dioxide 20 L BUN 16 Creatinine 1.29 H Estimated GFR > 60 BUN/Creatinine Ratio 12.4 Glucose 90 Calcium 9.4 Magnesium 2.0 Urine Color Yellow Urine Appearance Clear Ur Specific [place] >=1.030 H Urine Protein Trace H Urine Glucose (UA) Negative Urine Ketones 3+ H Urine Occult Blood Negative Urine Nitrate Negative Urine Bilirubin 1+ H Ur Bilirubin Confirm Negative Urine Urobilinogen 0.2 Ur Leukocyte Esterase Negative Urine RBC 0-1/hpf D Urine WBC 1-5/hpf Ur Squamous Epith Cells 0-1 /hpf Urine Bacteria None seen Urine Mucus 1+ H Ur Culture Indicated? Cult not indicated Vol Urine Centrifuged 10ml (spun) U Opiates 300ng/mL cut Positive H Ur Oxycodone Screen Negative Urine Methadone Screen Negative Ur Barbiturates Screen Negative U Tricyclic Antidepress Negative Ur Phencyclidine Scrn Negative Ur Amphetamines Screen Negative U Methamphetamines Scrn Negative Ur MDMA Scrn (Ecstasy) Negative U Benzodiazepines Scrn Positive H Urine Cocaine Screen Negative U Marijuana (THC) Screen Positive H Urine pH Normal 6.0 Urine Specific [place] Normal Ur Creatinine Normal PFSH Social History household members: family Smoking Status: Never smoker alcohol intake: former Discharge Plan Discharge Plan Patient Disposition: Home Provider Discharge Comment: You were admitted to the hospital with nausea, vomiting, abdominal pain. Unclear if this was another kidney stone, urine infection, antibiotic reaction, or other etiology. Recommend primary care follow up to discuss recent ER visits, kidney stones, and weight loss. I think considering an EGD/colonoscopy is reasonable given the amount of weight loss. Discharge orders & Medications Prescriptions: New amoxicillin-pot clavulanate 875-125 mg tablet 1 tab PO BID 4 Days Qty: 8 0RF Continued hydrocodone-acetaminophen 5-325 mg tablet 1 tab PO Q8H PRN (Reason: pain) Qty: 7 0RF albuterol sulfate 90 mcg/actuation HFA aerosol inhaler 1 puff inhalation QID PRN (Reason: shortness of breath or wheezing) Qty: 8.5 3RF magnesium oxide 420 mg tablet 420 mg PO BEDTIME Qty: 14 0RF tamsulosin 0.4 mg capsule 0.4 mg PO DAILY metoprolol succinate 50 mg tablet extended release 24 hr 50 mg PO DAILY ondansetron 4 mg tablet,disintegrating 4 mg PO Q8H PRN (Reason: nausea and vomiting) Qty: 30 0RF Discontinued tamsulosin [Flomax] 0.4 mg capsule 0.4 mg PO DAILY Qty: 30 0RF sulfamethoxazole-trimethoprim 800-160 mg tablet 1 tab PO BID Follow up/Referrals: Reggie Guerra DO [Primary Care Provider] - Diet/Activity/Treatments Diet: Diet as Tolerated and Regular Activity: As tolerated, no restrictions Visit Report/Discharge Packet Instructions: DI for Urinary Tract Infection (UTI), DI for Abdominal Pain- Adult, DI for Acute Abdominal Pain, DI for Prescription Opioid Use, DI for Flank Pain Stand Alone Forms: Patient Portal/API, Stroke Signs & Symptoms Discharge Data Primary Care Provider: Reggie Guerra Attending Provider: Bebo Arevalo Admit Date/Time: 06/05/23 18:51 Quality VTE Deep Vein Thrombosis/Pulmonary Embolism Present on Admission: No
== END 2023-06-06 16:05 | disposition home or self-care (01) ==
LOC: ED 18:51 → AC 18:52
PROVIDERS: Internal Medicine; Admitting Provider Student in an Organized Health Care Education/Training Program; Emergency Provider Emergency Medicine; PCP Family Medicine; Referring Provider Emergency Medicine; Visit Provider Student in an Organized Health Care Education/Training Program
DX: R11.2 Nausea with vomiting, unspecified (principal); R10.11 Right upper quadrant pain; R63.4 Abnormal weight loss; R10.9 Unspecified abdominal pain
CPT/HCPCS: 36415; 74018; 74174; 76705; 76770; 80048; 80053; 80305; 81001; 83690; 83735; 85025; 94640; 96361; 96374; 96375; 96376; 99283; 99284; G0378; C9113; J1170; J1885; J2060; J2270; J2405; J2765; J7050; J7613; Q9967

== ENCOUNTER 2023-06-09 00:06 | Emergency (ER) | payer OTHER, MEDICAID, SELFPAY ==
[2023-06-05 19:00] VITALS: BMI 21.4
[2023-06-09] VITALS (14 sets, daily range): BP systolic 128–160; BP diastolic 85–123; PULSE 64–99; RESP 16; TEMP 36.3; O2SAT 98–100; BMI 21.7
--- NOTE | 2023-06-09 00:22 | ED.ABDPAIN ---
HPI - Abdominal Pain General Chief Complaint: Abdominal Pain Stated Complaint: Right side ABD pain Time Seen by Provider: 06/09/23 00:21 Source: patient, RN notes reviewed and old records reviewed Limitations: no limitations History of Present Illness HPI narrative: 33-year-old male history of asthma and hypertension presents with complaint of right-sided abdominal and flank pain. Patient has had several visits here in the last week. Was ultimately hospitalized for acute kidney injury, right flank pain intractable nausea and vomiting. Patient states he was improving was relatively asymptomatic yesterday but had some mild discomfort which she had been progressively worsening. He describes it as right flank and abdominal. States no fevers. He has had nausea and vomiting. Has not been able to keep fluids down. He states he has small solids sort of constipated bowel movement and then several episodes of diarrheal stool after that. He states no black or blood in his stool. Did notice some dysuria today which has gotten a little bit stronger, some frequency and urgency sensation. He states that was also present initially when he was diagnosed with UTI and has been improving. He denies any testicular pain. Denies any rash or skin changes. States has had kidney stones in the past. She is used albuterol for asthma, Tofranil for retention. He states no prior abdominal surgeries. No tobacco, denies alcohol or recreational drugs. 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 He is still taking the Augmentin that he was prescribed. His brother is at bedside. Related Data Home Medications Medication Instructions Recorded Confirmed tamsulosin 0.4 mg capsule 0.4 mg PO DAILY 06/05/23 06/06/23 metoprolol succinate 50 mg 50 mg PO DAILY 06/06/23 06/06/23 tablet,extended release 24 hr Previous Rx's Medication Instructions Recorded albuterol sulfate 90 mcg/actuation 1 puff inhalation QID PRN 01/17/22 aerosol inhaler shortness of breath or wheezing #8.5 grams magnesium oxide 420 mg tablet 420 mg PO BEDTIME #14 tabs 01/17/22 hydrocodone 5 mg-acetaminophen 325 1 tab PO Q8H PRN pain #7 tabs 06/01/23 mg tablet amoxicillin 875 mg-potassium 1 tab PO BID 4 days #8 tabs 06/06/23 clavulanate 125 mg tablet ondansetron 4 mg disintegrating 4 mg PO Q8H PRN nausea and 06/06/23 tablet vomiting #30 tabs oxycodone 5 mg tablet 5 mg PO Q6H PRN pain #10 tabs 06/09/23 Allergies Allergy/AdvReac Type Severity Reaction Status Date / Time sulfamethoxazole AdvReac Intermediate GAY Verified 06/08/23 07:51 [From Bactrim] trimethoprim [From Bactrim] AdvReac Intermediate GAY Verified 06/08/23 07:51 Review of Systems Review of Systems ROS Unobtainable: All systems reviewed & are unremarkable except as noted in HPI and below Patient History Social History household members: family Smoking Status: Never smoker alcohol intake: former Smoking Status: Never smoker alcohol intake frequency: other Substance Use Type: does not use Exam Narrative Exam Narrative: GENERAL: Alert and oriented x three, male in moderate distress. HEENT: Head normocephalic, atraumatic, EOMI, pupils reactive, face symmetric, moist mucous membranes NECK: Supple, full range of motion CARDIOVASCULAR: Regular rate and rhythm without murmurs, rubs or gallops. RESPIRATORY: Breath sounds equal bilaterally, no wheezes rales or rhonchi. ABDOMEN: Soft, right upper quadrant tenderness. Normoactive bowel sounds all 4 quadrants. No guarding or rebound, rigidity, no mass, no bruit or pulsatile mass : No CVA tenderness bilaterally. EXTREMITIES: Normal range of motion, no clubbing or edema. Neurovascularly intact NEUROLOGICAL: Cranial nerves II through XII grossly intact. Moving all extremities SKIN: Warm, dry, no petechiae, no rashes or lesions, blisters or vesicles. No ecchymosis. Initial Vital Signs Initial Vital Signs: Vital Signs Temperature 97.4 F L 06/09/23 00:10 Pulse Rate 94 H 06/09/23 00:10 Respiratory Rate 16 06/09/23 00:10 Blood Pressure 148/101 H 06/09/23 00:10 Pulse Oximetry 99 06/09/23 00:10 Oxygen Delivery Method Room Air 06/09/23 00:10 Course Orders Ordered: ED Orders 06/09/23 00:20 CBC Auto Diff [Complete Blood Count AUTO DIFF] Stat CMP [Comprehensive Metabolic Panel] Stat Lipase Stat 06/09/23 00:39 CT angio chest abdomen pelvis Stat 06/09/23 01:48 US abdomen limited Stat 06/09/23 02:05 Creatinine Urine Random Stat Ictotest Urine Stat Sodium Urine Random Stat UA Complete [Urinalysis and Microscopic] Stat Discontinued Medications Sodium Chloride (Normal Saline 0.9%) 1,000 mls @ 1,000 mls/hr IV BOLUS ONE Stop: 06/09/23 01:25 Last Admin: 06/09/23 00:49 Dose: 1,000 mls/hr Documented By: MILVIA Sodium Chloride (Normal Saline 0.9%) 1,000 mls @ 1,000 mls/hr IV BOLUS ONE Stop: 06/09/23 04:26 Ketorolac Tromethamine (Ketorolac 30 Mg/Ml Vial) 15 mg IV NOW ONE Stop: 06/09/23 00:39 Last Admin: 06/09/23 00:48 Dose: 15 mg Documented By: MILVIA Morphine Sulfate (Morphine 4 Mg/Ml Inj) 4 mg IV NOW ONE Stop: 06/09/23 01:48 Last Admin: 06/09/23 02:03 Dose: 4 mg Documented By: MILVIA Ondansetron HCl (Ondansetron 4 Mg/2 Ml Inj) 4 mg IV NOW ONE Stop: 06/09/23 00:39 Last Admin: 06/09/23 00:47 Dose: 4 mg Documented By: MILVIA Ondansetron HCl (Ondansetron 4 Mg Odt) 4 mg SL NOW ONE Stop: 06/09/23 05:38 Last Admin: 06/09/23 06:02 Dose: Not Given Documented By: DANIELA Ondansetron HCl (Ondansetron 4 Mg/2 Ml Inj) 4 mg IV NOW ONE Stop: 06/09/23 05:46 Last Admin: 06/09/23 05:52 Dose: 4 mg Documented By: DANIELA Oxycodone/Acetaminophen (Oxycodone/Apap 5/325 Prepack) 1 bottle MISC DIRECTED ONE Stop: 06/09/23 05:10 Last Admin: 06/09/23 05:32 Dose: 1 bottle Documented By: DANIELA Vital Signs Vital signs: Vital Signs - 8 hr 06/09/23 00:10 06/09/23 00:29 06/09/23 00:30 Temperature 97.4 F L Pulse Rate 94 H 80 Respiratory Rate 16 Blood Pressure 148/101 H 132/95 H Pulse Oximetry 99 99 Oxygen Delivery Method Room Air 06/09/23 00:30 06/09/23 00:31 06/09/23 00:31 Temperature Pulse Rate 85 84 Respiratory Rate Blood Pressure 133/97 H Pulse Oximetry 99 99 Oxygen Delivery Method 06/09/23 00:32 06/09/23 00:32 06/09/23 00:33 Temperature Pulse Rate 93 H Respiratory Rate Blood Pressure 144/100 H 145/103 H Pulse Oximetry 100 Oxygen Delivery Method 06/09/23 00:33 06/09/23 00:51 06/09/23 00:51 Temperature Pulse Rate 92 H 99 H Respiratory Rate Blood Pressure 140/111 H Pulse Oximetry 100 98 Oxygen Delivery Method 06/09/23 00:52 06/09/23 00:52 06/09/23 01:02 Temperature Pulse Rate 99 H 83 Respiratory Rate Blood Pressure 147/123 H Pulse Oximetry 99 100 Oxygen Delivery Method 06/09/23 01:30 06/09/23 02:04 06/09/23 02:08 Temperature Pulse Rate 80 64 Respiratory Rate Blood Pressure 128/85 Pulse Oximetry 100 100 Oxygen Delivery Method 06/09/23 02:08 06/09/23 02:30 06/09/23 02:30 Temperature Pulse Rate 89 88 Respiratory Rate Blood Pressure 154/104 H Pulse Oximetry 100 100 Oxygen Delivery Method 06/09/23 03:00 06/09/23 03:00 Temperature Pulse Rate 84 Respiratory Rate Blood Pressure 160/94 H Pulse Oximetry 99 Oxygen Delivery Method MDM - Abdominal Pain Lab Data 06/09/23 00:20 06/09/23 00:20 Labs: Lab Results 06/09/23 06/09/23 Range/Units 00:20 02:05 WBC 11.2 H (4.5-11.0) X10^3/uL RBC 5.02 (4.5-5.9) X10^6/uL Hgb 14.0 (13.5-17.5) g/dL Hct 41.7 (41-53) % MCV 83.1 (80-100) fL MCH 27.9 (26-34) PG MCHC 33.5 (30-36) % RDW 12.5 (11.6-14.8) % Plt Count 224 (150-400) X10^3/uL Neut % (Auto) 79.9 H (50-75) % Lymph % (Auto) 11.7 L (25-40) % [place] % (Auto) 7.4 (3-14) % Eos % (Auto) 0.5 L (2-4) % Baso % (Auto) 0.5 (0-2) % Neut # (Auto) 8900 H (1559-3048) /uL Lymph # (Auto) 1300 (9177-3809) /uL [place]ley # (Auto) 800 (0-900) /uL Eos # (Auto) 100 (0-450) /uL Baso # (Auto) 100 (0-100) /uL Sodium 139 (137-145) mmol/L Potassium 4.2 (3.4-5.1) mmol/L Chloride 104 (98-107) mmol/L Carbon Dioxide 26 (22-32) mmol/L BUN 13 (9-20) mg/dL Creatinine 1.50 H (0.66-1.25) mg/dL Estimated GFR > 60 (>60) mL/min BUN/Creatinine Ratio 8.7 (6-22) Glucose 103 H (70-100) mg/dL Calcium 10.1 (8.4-10.2) mg/dL Total Bilirubin 1.1 (0.2-1.3) mg/dL AST 33 (17-59) IU/L ALT 15 (<50) IU/L Alkaline Phosphatase 70 (38-126) U/L Total Protein 8.6 H (6.3-8.2) g/dL Albumin 5.1 H (3.5-5.0) g/dL Globulin 3.5 (1.7-4.1) g/dL Albumin/Globulin Ratio 1.5 (1.0-2.8) Lipase 26 (23-300) U/L Urine Color Yellow Urine Appearance Clear Urine pH 8.0 (4.5-8.0) Ur Specific [place] 1.010 (1.000-1.035) Urine Protein Trace H (Negative) Urine Glucose (UA) Negative (Negative) g/dL Urine Ketones 3+ H (NEGATIVE) Urine Occult Blood Trace-intact (Negative) Urine Nitrate Negative (Negative) Urine Bilirubin 1+ H (NEGATIVE) Ur Bilirubin Confirm Positive H (Negative) Urine Urobilinogen 1.0 (0.2) E.U./dL Ur Leukocyte Esterase Negative (NEGATIVE) Urine RBC 0-1/hpf (0-5/HPF) Urine WBC None seen (0-5/HPF) Ur Squamous Epith Cells None seen (0-5/HPF) Urine Bacteria None seen (None) Ur Culture Indicated? Cult not indicated Vol Urine Centrifuged 10ml (spun) Ur Random Sodium 209 H (30-90) mmol/L Urine Creatinine 275.4 mg/dL Imaging Data CT scan - abdomen/pelvis: Radiologist's Impression: Normal CT angiogram chest abdomen pelvis no evidence of vascular injury no aortic aneurysm or dissection. Has normal liver, biliary system, no cholelithiasis or pericholecystic inflammation pancreas is unremarkable, kidneys are normal without any acute changes to the urinary system. US - abdomen: Radiologist's Impression: Unremarkable right upper quadrant ultrasound, patient's gallbladder shows no stones, wall thickening or pericholecystic fluid common bile ducts within normal limits 3 mm no intrahepatic duct dilation no sonographic Munoz's liver is unremarkable, no focal lesions right kidney is grossly unremarkable no ascites. [facility] Narrative Medical decision making narrative: 33-year-old male with right-sided abdominal/filling pain 1st presented on the was diagnosed with UTI started on antibiotics but return with increasing pain. Patient has recently had labs which showed acute kidney injury, he had CT and ultrasound were shown to have 3 left and right renal arteries but otherwise no acute changes on CT or ultrasound. Patient was admitted for nausea and vomiting and acute kidney injury as well as diarrhea which had improved. They were able to perform C diff testing secondary solid. But had improvement in the department differential included viral enteritis, kidney stone or possible reaction to Bactrim. Patient was told to consider follow up for EGD and colonoscopy. Urine culture from 05/30 showed no growth. Labs show white count 11.2 was 12.7 on the , normal hemoglobin platelets of 224, leftward shift. Electrolytes are appropriate CO2 is 26 with a BUN of 13 creatinine of 1.5 has been ranging from 1.48-1.89 on the , was 1.2 on May 30. Glucose is 103, total protein albumin are elevated but are otherwise negative LFTs. Urine shows trace protein 3+ ketones trace blood, 1+ bilirubin positive for bilirubin negative for leuks, 0-1 RBCs no white cells no squamous epithelials no bacteria. Fena is 0.8%= prerenal Imaging patient had CTA chest abdomen pelvis which shows no significant changes overall unremarkable no evidence of vascular injury aortic aneurysm or dissection. Patient had right upper quadrant abdominal ultrasound as this is where he is most tender though he does have flank pain as well as right-sided pain. Ultrasound shows unremarkable right upper quadrant ultrasound. Patient right kidney is also grossly unremarkable Patient does not have any rash or skin changes consistent shingles. He has been ambulating to the bathroom. Patient received fluids, antiemetics and pain medication patient had some improvement of symptoms but no resolution. Patient was given oral challenge here in the department patient has been tolerating. Spoke with Nephrology, patient has had persistent right flank pain/right upper quadrant pain with report of nausea vomiting intermittent diarrhea patient is tender on examination in the right upper quadrant. CT imaging as well as ultrasound do not show any clear acute causes. His electrolytes are otherwise normal with slight white count. Urine shows bilirubin, ketone, but 0-1 red cells, no white cells. Patient did not have a CT on 06/04/2022 which showed 3 right renal arteries 3 left renal arteries but were all unremarkable at that time. He was on Bactrim boat have that has been stopped he has been continued on Augmentin for potential UTI, urine culture was negative from the . Consult with nephrology, [facility]: Dr. Crowe discussed patient's findings, persistent right-sided abdominal/flank pain had had some nausea vomiting dehydration component has had kidney stones in the past but has not had any caught recently. 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 Could add on FENA to evaluate for prerenal source. Spoke with patient, he states pain is controlled currently. He is somewhat anxious about returning discussed we will send with a prepack for this evening and some tablets of narcotic pain medication he has run out. Still has a lot of Zofran or ondansetron available. Discussed and marked his bottle of Bactrim not to take it as he was little confused about which antibiotic he was supposed to stop. Reviewed thoughts from Nephrology, recommendations for follow up and contact given. Discussed return precautions. All questions answered. Discharge Plan Departure Patient Disposition: Home Clinical Impression: Right flank pain Activity Restrictions/Additional Instructions: Follow up with nephrology for recheck. 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 Spoke with Nephrology who recommended to follow up as an outpatient possibly 24 hour urine collection further workup. Adjusing your diet can sometimes help. I would also encourage drinking plenty of fluids. Do not take Bactrim or sulfamethoxazole/trimethoprim as this can cause injury to your kidney. You can complete your Augmentin. You may take pain medications as prescribed. You can take Tylenol up to a 1000 mg every 6 hours as needed. You may continue to use your Zofran or ondansetron 1 tablet every 6 hours as needed for nausea. Can take oxycodone 1-2 tablets every 6 hours as needed for pain. Make sure you are taking a stool softener to help you have bowel movements. Prescription sent to [facility] in [place]. Please return for fevers, persistent vomiting, black or bloody stools, difficulty with urination or other new or concerning changes. Prescriptions: New oxycodone 5 mg tablet 5 mg PO Q6H PRN (Reason: pain) Qty: 10 0RF No Action hydrocodone-acetaminophen 5-325 mg tablet 1 tab PO Q8H PRN (Reason: pain) Qty: 7 0RF albuterol sulfate 90 mcg/actuation HFA aerosol inhaler 1 puff inhalation QID PRN (Reason: shortness of breath or wheezing) Qty: 8.5 3RF magnesium oxide 420 mg tablet 420 mg PO BEDTIME Qty: 14 0RF tamsulosin 0.4 mg capsule 0.4 mg PO DAILY metoprolol succinate 50 mg tablet extended release 24 hr 50 mg PO DAILY amoxicillin-pot clavulanate 875-125 mg tablet 1 tab PO BID 4 Days Qty: 8 0RF ondansetron 4 mg tablet,disintegrating 4 mg PO Q8H PRN (Reason: nausea and vomiting) Qty: 30 0RF Referrals: Reggie Guerra DO [Primary Care Provider] - Stand Alone Forms: Patient Portal/API
[2023-06-09 00:30] LABS: Add Manual Diff / Slide Review NO; Basophils Absolute Auto 100 /uL (0-100); Basophils Percent Auto 0.5 % (0-2); Eosinophils Absolute Auto 100 /uL (0-450); Eosinophils Percent Auto 0.5 % (2-4); Hematocrit 41.7 % (41-53); Lymphocytes Absolute Auto 1300 /uL (1100-4500); Lymphocytes Percent Auto 11.7 % (25-40); Mean Corpuscular HGB Conc 33.5 % (30-36); Mean Corpuscular Hemoglobin 27.9 PG (26-34); Mean Corpuscular Volume 83.1 fL (80-100); Monocytes Absolute Auto 800 /uL (0-900); Monocytes Percent Auto 7.4 % (3-14); Neutrophils Absolute Auto 8900 /uL (1500-7000); Neutrophils Percent Auto 79.9 % (50-75); Platelet Count 224 X10^3/uL (150-400); Red Blood Cell Count 5.02 X10^6/uL (4.5-5.9); Red Cell Distribution Width 12.5 % (11.6-14.8); White Blood Cell Count 11.2 X10^3/uL (4.5-11.0)
--- NOTE | 2023-06-09 00:39 | DI.CT.S_ITS ---
PROCEDURE: CT ANGIO CHEST ABDOMEN PELVIS INDICATIONS: right flank/abd pain, worse RUQ TECHNIQUE: Precontrast 5 mm thick sections acquired from the lung apices to the iliac crests. After the administration of intravenous contrast, 2.5 mm thick sections again acquired from the lung apices to the iliac crests. Maximum intensity projection (MIP) oblique sagittal and coronal reformats were then acquired. For radiation dose reduction, the following was used: automated exposure control. COMPARISON: None. FINDINGS: Chest: Cardiovascular: Heart size is normal. No evidence of pulmonary embolism, aortic aneurysm or dissection. Lungs and pleural spaces: The lung starks are clear without nodule, infiltrate or interstitial prominence. Pleural spaces show no effusion or pneumothorax. Lymph nodes: No mediastinal, hilar or axillary adenopathy. Mediastinum: Unremarkable. No hiatal hernia. Thyroid within normal limits. Chest Wall and Bones: Unremarkable. No acute fracture. Abdomen and Pelvis: Liver: Normal in size and attenuation. No contour deformity present. Biliary system: No calcified cholelithiasis or pericholecystic inflammation. No intra or extrahepatic bile duct dilatation. Pancreas: Unremarkable without mass or inflammation evident. Spleen: Normal in size and density. Adrenals: Normal morphology and density. Reproductive system: Unremarkable as visualized. Urinary system: Normal renal size and attenuation. No renal calculi, hydronephrosis, or solid mass present. Urinary bladder unremarkable. Gastrointestinal system: The bowel is unremarkable with no evidence of bowel obstruction or inflammation. The stomach appears unremarkable. Appendix: No findings to suggest acute appendicitis. Lymph nodes: No mesenteric or retroperitoneal adenopathy. Peritoneal spaces: No free air. No free fluid. Vasculature: The IVC, aorta and iliac vasculature are unremarkable. Abdominal wall: Abdominal wall intact without evidence of ventral or inguinal hernias. Musculoskeletal: Normal bone mineralization. No acute fractures. IMPRESSION: 1. Normal CT angiogram chest abdomen and pelvis. No evidence of vascular injury. No aortic aneurysm or dissection. Approved by: Gold Howe M.D. on 06/09/2023 at 0:42
[2023-06-09 00:40] LABS: Alanine Aminotransferase 15 IU/L (<50); Albumin 5.1 g/dL (3.5-5.0); Albumin Globulin Ratio 1.5 (1.0-2.8); Alkaline Phosphatase 70 U/L (38-126); Aspartate Aminotransferase 33 IU/L (17-59); BUN Creatinine Ratio 8.7 (6-22); Bilirubin Total 1.1 mg/dL (0.2-1.3); Blood Urea Nitrogen 13 mg/dL (9-20); Calcium 10.1 mg/dL (8.4-10.2); Carbon Dioxide 26 mmol/L (22-32); Chloride 104 mmol/L (98-107); Estimated Glomerular Filt Rate > 60 mL/min (>60); Globulin 3.5 g/dL (1.7-4.1); Glucose 103 mg/dL (70-100); Lipase 26 U/L (23-300); Potassium 4.2 mmol/L (3.4-5.1); Sodium 139 mmol/L (137-145); Total Protein 8.6 g/dL (6.3-8.2)
[2023-06-09 00:43] LABS: HEMOLYSIS 76 (0-50)
[2023-06-09] MEDS: ONDANSETRON 4 MG/2 ML INJ IV ×2 (00:47→05:52)
[2023-06-09] MEDS: KETOROLAC 30 MG/ML VIAL 15 MG IV (00:48)
[2023-06-09] MEDS: SODIUM CHLORIDE 0.9% 1,000 ML 1000 ML IV (00:49)
--- NOTE | 2023-06-09 01:48 | DI.US.S_ITS ---
PROCEDURE: US ABDOMEN LIMITED INDICATIONS: r flank/abd pain, RUQ TECHNIQUE: Real-time scanning was performed of the abdominal and retroperitoneal organs, with image documentation. COMPARISON: [facility], US, US ABDOMEN LIMITED, 06/05/2023, 15:08. FINDINGS: Liver: Liver is normal in size and homogeneous in echotexture. Gallbladder: No gallstones. No wall thickening. No pericholecystic edema. Negative sonographic Munoz's sign. Biliary ducts: Intrahepatic bile ducts are non-dilated. Extrahepatic bile duct caliber measures 3.1 mm. Normal is 6-7 mm or less in diameter, or 10 mm or less post-cholecystectomy. Pancreas: Visualized portions of the pancreas are sonographically normal. Miscellaneous: No free abdominal fluid. IMPRESSION: Normal right upper quadrant ultrasound. Dictated by: Tomas Esteban M.D. on 06/09/2023 at 8:20 Approved by: Tomas Esteban M.D. on 06/09/2023 at 8:21
[2023-06-09] MEDS: MORPHINE 4 MG/ML INJ IV (02:03)
[2023-06-09 02:17] LABS: Appearance Urine UA CLEAR; Bilirubin Urine UA 1+ (NEGATIVE); Color Urine UA YELLOW; Glucose Urine UA NEGATIVE (Negative); Ketones Urine UA 3+ (NEGATIVE); Leukocyte Esterase Urine UA NEGATIVE (NEGATIVE); Nitrite Urine UA NEGATIVE (Negative); Occult Blood Urine UA TRACE-INTACT (Negative); Protein Urine UA TRACE (Negative)
[2023-06-09 02:26] LABS: Bacteria Urine None Seen; Culture Indicated Urine Cult Not Indicated; Ictotest Urine Positive (Negative); RBC Urine 0-1/HPF (0-5/HPF); Squamous Epithelial Cell Urine None Seen (0-5/HPF); Urine Volume 10mL (spun); WBC Urine None Seen (0-5/HPF)
[2023-06-09] MEDS: OXYCODONE/APAP 5/325 PREPACK 1 BOTTLE MISC (05:32)
[2023-06-09 05:41] LABS: Creatinine Urine Random 275.4 mg/dL; Sodium Urine Random 209 mmol/L (30-90)
== END 2023-06-09 06:25 | disposition home or self-care (01) ==
PROVIDERS: Emergency Provider Emergency Medicine; PCP Family Medicine
DX: R10.9 Unspecified abdominal pain (principal); R11.2 Nausea with vomiting, unspecified
CPT/HCPCS: 36415; 71275; 74174; 76705; 80053; 81001; 82570; 83690; 84300; 85025; 96374; 96375; 96376; 99284; J1885; J2270; J2405; Q9967

== ENCOUNTER 2023-09-08 12:41 | Emergency (ER) | payer OTHER, MEDICAID, SELFPAY ==
[2023-06-05 19:00] VITALS: BMI 21.4
[2023-09-08 13:04] VITALS: BP 157/82; PULSE 104; RESP 26; TEMP 36.3; O2SAT 99; BMI 23.0
[2023-09-08] MEDS: ONDANSETRON 4 MG/2 ML INJ IV (13:18)
--- NOTE | 2023-09-08 13:19 | ED_ITS ---
HPI - Abdominal Pain General Chief Complaint: Abdominal Pain Stated Complaint: Nausea & Vomiting, some blood Time Seen by Provider: 09/08/23 13:18 Source: patient Mode of arrival: Ambulatory History of Present Illness HPI narrative: Patient is a 33-year-old male history of asthma presenting today with nausea vomiting abdominal pain. He reports that he woke up not feeling great this morning and then has thrown up numerous times. He did throw up a little bit of bright red blood. He feels a little dizzy and lightheaded. No significant chest pain. He was using marijuana daily until about a year ago. He denies any sort of diarrhea he is got some upper abdominal pain. Related Data Home Medications Medication Instructions Recorded Confirmed tamsulosin 0.4 mg capsule 0.4 mg PO DAILY 06/05/23 06/06/23 metoprolol succinate 50 mg 50 mg PO DAILY 06/06/23 06/06/23 tablet,extended release 24 hr Previous Rx's Medication Instructions Recorded albuterol sulfate 90 mcg/actuation 1 puff inhalation QID PRN 01/17/22 aerosol inhaler shortness of breath or wheezing #8.5 grams magnesium oxide 420 mg tablet 420 mg PO BEDTIME #14 tabs 01/17/22 hydrocodone 5 mg-acetaminophen 325 1 tab PO Q8H PRN pain #7 tabs 06/01/23 mg tablet ondansetron 4 mg disintegrating 4 mg PO Q8H PRN nausea and 06/06/23 tablet vomiting #30 tabs oxycodone 5 mg tablet 5 mg PO Q6H PRN pain #10 tabs 06/09/23 ondansetron 4 mg disintegrating 4 mg PO Q8H PRN nausea and 09/08/23 tablet vomiting #10 tabs Allergies Allergy/AdvReac Type Severity Reaction Status Date / Time sulfamethoxazole AdvReac Intermediate GAY Verified 06/08/23 07:51 [From Bactrim] trimethoprim [From Bactrim] AdvReac Intermediate GAY Verified 06/08/23 07:51 Patient History Social History household members: family Smoking Status: Never smoker alcohol intake: former Smoking Status: Never smoker alcohol intake frequency: other Substance Use Type: does not use Exam Initial Vital Signs Initial Vital Signs: Vital Signs Temperature 97.4 F L 09/08/23 13:04 Pulse Rate 104 H 09/08/23 13:04 Respiratory Rate 26 H 09/08/23 13:04 Blood Pressure 157/82 H 09/08/23 13:04 Pulse Oximetry 99 09/08/23 13:04 Oxygen Delivery Method Room Air 09/08/23 13:04 Course Orders Ordered: ED Orders 09/08/23 13:14 EKG-12 Lead Stat 09/08/23 13:20 Complete Blood Count AUTO DIFF Stat Comprehensive Metabolic Panel Stat Lipase Stat 09/08/23 15:22 Urine Culture Stat Urine Microscopic Stat Discontinued Medications Sodium Chloride (Normal Saline 0.9%) 1,000 mls @ 1,000 mls/hr IV BOLUS ONE Stop: 09/08/23 14:18 Last Infusion: 09/08/23 14:20 Dose: Infused Documented By: Admin: 09/08/23 13:27 Dose: 1,000 mls/hr Documented By: Ondansetron HCl (Ondansetron 4 Mg/2 Ml Inj) 4 mg IV NOW PRN PRN Reason: Nausea And Vomiting Last Admin: 09/08/23 13:18 Dose: 4 mg Documented By: RB Ondansetron HCl (Ondansetron 4 Mg Odt) 4 mg PO NOW PRN PRN Reason: Nausea And Vomiting Pantoprazole Sodium (Pantoprazole 40 Mg Vial) 40 mg IV NOW ONE Stop: 09/08/23 13:31 Last Admin: 09/08/23 13:40 Dose: 40 mg Documented By: Vital Signs Vital signs: Vital Signs - 8 hr 09/08/23 13:04 09/08/23 14:49 09/08/23 15:09 Temperature 97.4 F L Pulse Rate 104 H 65 75 Respiratory Rate 26 H 16 Blood Pressure 157/82 H 135/79 Pulse Oximetry 99 100 Oxygen Delivery Method Room Air Room Air 09/08/23 15:10 09/08/23 15:10 Temperature Pulse Rate 71 Respiratory Rate Blood Pressure 135/90 Pulse Oximetry 96 Oxygen Delivery Method MDM - Abdominal Pain Lab Data 09/08/23 13:20 09/08/23 13:20 Labs: Lab Results 09/08/23 09/08/23 Range/Units 13:20 15:22 WBC 6.5 (4.5-11.0) X10^3/uL RBC 5.03 (4.5-5.9) X10^6/uL Hgb 14.4 (13.5-17.5) g/dL Hct 43.5 (41-53) % MCV 86.5 (80-100) fL MCH 28.7 (26-34) PG MCHC 33.2 (30-36) % RDW 12.9 (11.6-14.8) % Plt Count 257 (150-400) X10^3/uL Neut % (Auto) 87.5 H (50-75) % Lymph % (Auto) 9.0 L (25-40) % [place] % (Auto) 2.9 L (3-14) % Eos % (Auto) 0.2 L (2-4) % Baso % (Auto) 0.4 (0-2) % Neut # (Auto) 5700 (9575-9430) /uL Lymph # (Auto) 600 L (4799-9908) /uL [place] # (Auto) 200 (0-900) /uL Eos # (Auto) 0 (0-450) /uL Baso # (Auto) 0 (0-100) /uL Sodium 138 (137-145) mmol/L Potassium 4.0 (3.4-5.1) mmol/L Chloride 106 (98-107) mmol/L Carbon Dioxide 21 L (22-32) mmol/L BUN 7 L (9-20) mg/dL Creatinine 1.30 H (0.66-1.25) mg/dL Estimated GFR > 60 (>60) mL/min BUN/Creatinine Ratio 5.4 L (6-22) Glucose 106 H (70-100) mg/dL Calcium 9.2 (8.4-10.2) mg/dL Total Bilirubin 1.5 H (0.2-1.3) mg/dL AST 27 (17-59) IU/L ALT 19 (<50) IU/L Alkaline Phosphatase 83 (38-126) U/L Total Protein 8.0 (6.3-8.2) g/dL Albumin 4.8 (3.5-5.0) g/dL Globulin 3.2 (1.7-4.1) g/dL Albumin/Globulin Ratio 1.5 (1.0-2.8) Lipase 30 (23-300) U/L Urine RBC 0-1/hpf (0-5/HPF) Urine WBC 1-5/hpf (0-5/HPF) Ur Squamous Epith Cells 0-1 /hpf (0-5/HPF) Urine Bacteria Occasional (0-1) (None) Urine Mucus 3+ H D (Negative) Ur Culture Indicated? Cult not indicated Vol Urine Centrifuged 10ml (spun) Point of care testing: Urine Dip Bedside Urine Glucose Negative Bedside Urine Bilirubin - Negative Bedside Urine Ketone +++ 80 Urine Specific [place] 1.015 Bedside Urine Occult Blood - Negative Bedside Urine pH 7.5 Bedside Urine Protein + 30 Bedside Urine Urobilinogen - Negative Bedside Urine Nitrite - Negative Bedside Urine Leukocytes +/- 15 Esterase ECG Data Attestation: I personally reviewed and interpreted this ECG as follows: Interpretation: Normal sinus rhythm rate 64 HI interval 114 QRS 86 QTC [address] changes no T- wave inversions MDM Narrative Medical decision making narrative: Patient is a healthy 33-year-old male who presents today with nausea vomiting. Abdomen is soft on exam and nonacute. Although he does look a little bit pale. Blood work has been reviewed overall reassuring, no anemia or leukocytosis, creatinine is elevated at 1.3 but baseline 1.5 potassium 4.0, bilirubin slightly elevated 1.5 with an AST of 27 ALT 19, lipase 30 EKG has been reviewed and normal as above Records reviewed from prior visits Patient actually had an ultrasound and a CT June 09 2023 both which were negative. Abdomen remained soft nontender he is tolerating oral fluids. He is overall feeling a lot better. Did discuss with the he has a elevated creatinine he actually says that he has an appointment to meet with Nephrology or has a referral to nephrology. Recommend that he avoid NSAIDs. But overall creatinine is stable and not any worse Discharge Plan Departure Patient Disposition: Home Clinical Impression: Gastroenteritis, CKD (chronic kidney disease) Instructions: Chronic Kidney Disease, DI for Viral Gastroenteritis -- Adult Activity Restrictions/Additional Instructions: *You have been diagnosed with gastroenteritis *What to do: At this time I do suspect a viral illness. Increase fluids as tolerated recommend Gatorade or Gatorade like fluid. You are also noted to have an elevated creatinine which is stable today but definitely needs to be monitored and needs to be evaluated by wire technician *Continue to take medications as directed Avoid NSAIDs such as aspirin leave naproxen Motrin ibuprofen Zofran 4 mg every 8 hours if needed for nausea or vomiting *Follow up with your primary care provider in 2-3 days or call [phone] *Return to ER if you should have persistent vomiting despite anti nausea medication, or any new, worsening or concerning symptoms Prescriptions: New ondansetron 4 mg tablet,disintegrating 4 mg PO Q8H PRN (Reason: nausea and vomiting) Qty: 10 0RF No Action hydrocodone-acetaminophen 5-325 mg tablet 1 tab PO Q8H PRN (Reason: pain) Qty: 7 0RF oxycodone 5 mg tablet 5 mg PO Q6H PRN (Reason: pain) Qty: 10 0RF albuterol sulfate 90 mcg/actuation HFA aerosol inhaler 1 puff inhalation QID PRN (Reason: shortness of breath or wheezing) Qty: 8.5 3RF magnesium oxide 420 mg tablet 420 mg PO BEDTIME Qty: 14 0RF tamsulosin 0.4 mg capsule 0.4 mg PO DAILY metoprolol succinate 50 mg tablet extended release 24 hr 50 mg PO DAILY ondansetron 4 mg tablet,disintegrating 4 mg PO Q8H PRN (Reason: nausea and vomiting) Qty: 30 0RF Referrals: Reggie Guerra DO [Primary Care Provider] - Stand Alone Forms: Patient Portal/API
[2023-09-08] MEDS: SODIUM CHLORIDE 0.9% 1,000 ML 1000 ML IV (13:27)
[2023-09-08 13:29] LABS: Add Manual Diff / Slide Review NO; Basophils Absolute Auto 0 /uL (0-100); Basophils Percent Auto 0.4 % (0-2); Eosinophils Absolute Auto 0 /uL (0-450); Eosinophils Percent Auto 0.2 % (2-4); Hematocrit 43.5 % (41-53); Hemoglobin 14.4 g/dL (13.5-17.5); Lymphocytes Absolute Auto 600 /uL (1100-4500); Mean Corpuscular HGB Conc 33.2 % (30-36); Mean Corpuscular Hemoglobin 28.7 PG (26-34); Mean Corpuscular Volume 86.5 fL (80-100); Monocytes Absolute Auto 200 /uL (0-900); Monocytes Percent Auto 2.9 % (3-14); Neutrophils Absolute Auto 5700 /uL (1500-7000); Neutrophils Percent Auto 87.5 % (50-75); Platelet Count 257 X10^3/uL (150-400); Red Blood Cell Count 5.03 X10^6/uL (4.5-5.9); Red Cell Distribution Width 12.9 % (11.6-14.8); White Blood Cell Count 6.5 X10^3/uL (4.5-11.0)
--- NOTE | 2023-09-08 13:29 | EKG_ITS ---
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
[2023-09-08 13:39] LABS: Alanine Aminotransferase 19 IU/L (<50); Albumin 4.8 g/dL (3.5-5.0); Albumin Globulin Ratio 1.5 (1.0-2.8); Alkaline Phosphatase 83 U/L (38-126); Aspartate Aminotransferase 27 IU/L (17-59); BUN Creatinine Ratio 5.4 (6-22); Bilirubin Total 1.5 mg/dL (0.2-1.3); Blood Urea Nitrogen 7 mg/dL (9-20); Calcium 9.2 mg/dL (8.4-10.2); Carbon Dioxide 21 mmol/L (22-32); Chloride 106 mmol/L (98-107); Estimated Glomerular Filt Rate > 60 mL/min (>60); Globulin 3.2 g/dL (1.7-4.1); Glucose 106 mg/dL (70-100); HEMOLYSIS 15 (0-50); Lipase 30 U/L (23-300); Sodium 138 mmol/L (137-145)
[2023-09-08] MEDS: PANTOPRAZOLE 40 MG VIAL IV (13:40)
[2023-09-08 14:49] VITALS: BP 135/79; PULSE 65; RESP 16; O2SAT 100
[2023-09-08 15:09] VITALS: PULSE 75
[2023-09-08 15:10] VITALS: BP 135/90; PULSE 71; O2SAT 96
[2023-09-08 15:47] LABS: Bacteria Urine Occasional (0-1); RBC Urine 0-1/HPF (0-5/HPF); Squamous Epithelial Cell Urine 0-1 /HPF (0-5/HPF); Urine Volume 10mL (spun); WBC Urine 1-5/HPF (0-5/HPF)
[2023-09-08 15:48] LABS: Culture Indicated Urine Cult Not Indicated; Mucus Urine 3+ (Negative)
== END 2023-09-08 15:54 | disposition home or self-care (01) ==
PROVIDERS: Emergency Provider Emergency Medicine; PCP Family Medicine
DX: K52.9 Noninfective gastroenteritis and colitis, unspecified (principal); N18.9 Chronic kidney disease, unspecified; R11.2 Nausea with vomiting, unspecified; R42 Dizziness and giddiness
CPT/HCPCS: 36415; 80053; 81003; 81015; 83690; 85025; 87086; 93005; 96361; 96374; 96375; 99284; J2405; J2470

== ENCOUNTER 2023-09-12 13:37 | Emergency (ER) | payer OTHER, MEDICAID, SELFPAY ==
[2023-06-05 19:00] VITALS: BMI 21.4
[2023-09-12 13:39] VITALS: BP 166/111; PULSE 90; RESP 14; TEMP 36.6; O2SAT 98; BMI 22.4
[2023-09-12 13:56] VITALS: PULSE 83; O2SAT 95
[2023-09-12 13:57] VITALS: BP 153/101; PULSE 82; O2SAT 99
[2023-09-12 14:03] LABS: Add Manual Diff / Slide Review NO; Basophils Absolute Auto 0 /uL (0-100); Basophils Percent Auto 0.6 % (0-2); Eosinophils Absolute Auto 0 /uL (0-450); Eosinophils Percent Auto 0.5 % (2-4); Hematocrit 42.1 % (41-53); Lymphocytes Absolute Auto 700 /uL (1100-4500); Lymphocytes Percent Auto 10.5 % (25-40); Mean Corpuscular HGB Conc 33.3 % (30-36); Mean Corpuscular Hemoglobin 28.6 PG (26-34); Mean Corpuscular Volume 85.8 fL (80-100); Monocytes Absolute Auto 200 /uL (0-900); Monocytes Percent Auto 3.3 % (3-14); Neutrophils Absolute Auto 5900 /uL (1500-7000); Neutrophils Percent Auto 85.1 % (50-75); Platelet Count 254 X10^3/uL (150-400); Red Blood Cell Count 4.91 X10^6/uL (4.5-5.9); Red Cell Distribution Width 12.8 % (11.6-14.8); White Blood Cell Count 6.9 X10^3/uL (4.5-11.0)
[2023-09-12] MEDS: ONDANSETRON 4 MG/2 ML INJ IV (14:07)
[2023-09-12] MEDS: SODIUM CHLORIDE 0.9% 1,000 ML 1000 ML IV (14:08)
[2023-09-12 14:17] LABS: Alanine Aminotransferase 18 IU/L (<50); Albumin 4.7 g/dL (3.5-5.0); Albumin Globulin Ratio 1.5 (1.0-2.8); Alkaline Phosphatase 72 U/L (38-126); Aspartate Aminotransferase 33 IU/L (17-59); BUN Creatinine Ratio 5.7 (6-22); Bilirubin Total 0.9 mg/dL (0.2-1.3); Blood Urea Nitrogen 8 mg/dL (9-20); Calcium 9.2 mg/dL (8.4-10.2); Carbon Dioxide 28 mmol/L (22-32); Chloride 104 mmol/L (98-107); Estimated Glomerular Filt Rate > 60 mL/min (>60); Globulin 3.1 g/dL (1.7-4.1); Glucose 105 mg/dL (70-100); HEMOLYSIS 36 (0-50); Lipase 44 U/L (23-300); Potassium 4.3 mmol/L (3.4-5.1); Sodium 140 mmol/L (137-145); Total Protein 7.8 g/dL (6.3-8.2)
--- NOTE | 2023-09-12 14:25 | EKG_ITS ---
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
--- NOTE | 2023-09-12 15:03 | ED.NAVMDI ---
HPI - Nausea/Vomiting/Diarrhea General Chief complaint: Nausea/Vomiting/Diarrhea Stated complaint: nausea,vomiting Time Seen by Provider: 09/12/23 13:43 Source: patient Mode of arrival: Ambulatory History of Present Illness HPI Narrative: 33-year-old male presents for nausea and vomiting. This is patient's 3rd visit this week for same symptoms. Yesterday patient was improved with Zofran and fluids and discharged with Phenergan suppositories. Patient states that this morning the Phenergan suppository did help his symptoms, but he has a burning sensation in his chest and abdomen. Has had very little to eat or drink Related Data Home Medications Medication Instructions Recorded Confirmed tamsulosin 0.4 mg capsule 0.4 mg PO DAILY 06/05/23 06/06/23 metoprolol succinate 50 mg 50 mg PO DAILY 06/06/23 06/06/23 tablet,extended release 24 hr Previous Rx's Medication Instructions Recorded albuterol sulfate 90 mcg/actuation 1 puff inhalation QID PRN 01/17/22 aerosol inhaler shortness of breath or wheezing #8.5 grams magnesium oxide 420 mg tablet 420 mg PO BEDTIME #14 tabs 01/17/22 hydrocodone 5 mg-acetaminophen 325 1 tab PO Q8H PRN pain #7 tabs 06/01/23 mg tablet ondansetron 4 mg disintegrating 4 mg PO Q8H PRN nausea and 06/06/23 tablet vomiting #30 tabs oxycodone 5 mg tablet 5 mg PO Q6H PRN pain #10 tabs 06/09/23 ondansetron 4 mg disintegrating 4 mg PO Q8H PRN nausea and 09/08/23 tablet vomiting #10 tabs ondansetron 4 mg disintegrating 4 mg PO Q8H PRN nausea and 09/12/23 tablet vomiting #30 tabs promethazine 25 mg rectal 25 mg [place] Q4-6H PRN nausea and 09/12/23 suppository vomiting #12 ea omeprazole 40 mg capsule,delayed 40 mg PO DAILY #60 caps 09/13/23 release sucralfate 1 gram tablet (Carafate) 1 g PO BID #30 tabs 09/13/23 Allergies Allergy/AdvReac Type Severity Reaction Status Date / Time sulfamethoxazole AdvReac Intermediate GAY Verified 09/13/23 10:00 [From Bactrim] trimethoprim [From Bactrim] AdvReac Intermediate GAY Verified 09/13/23 10:00 Patient History Social History household members: family Smoking Status: Never smoker alcohol intake: former Smoking Status: Never smoker alcohol intake frequency: other Substance Use Type: does not use Exam Initial Vital Signs Initial Vital Signs: Vital Signs Temperature 97.9 F 09/12/23 13:39 Pulse Rate 90 09/12/23 13:39 Respiratory Rate 14 09/12/23 13:39 Blood Pressure 166/111 H 09/12/23 13:39 Pulse Oximetry 98 09/12/23 13:39 Oxygen Delivery Method Room Air 09/12/23 13:39 Const: Awake, alert, no acute distress, nontoxic appearing GI: Soft, nontender, nondistended Skin: Warm, Dry, intact, no rashes Neuro: AO x3, CN II-XII grossly intact, moves all extremities Course Orders Ordered: Discontinued Medications Sodium Chloride (Normal Saline 0.9%) 1,000 mls @ 1,000 mls/hr IV BOLUS ONE Stop: 09/12/23 15:04 Last Admin: 09/12/23 14:08 Dose: Not Given Documented By: MEME Sodium Chloride (Normal Saline 0.9%) 1,000 mls @ 1,000 mls/hr IV BOLUS ONE Stop: 09/12/23 15:05 Last Infusion: 09/12/23 14:52 Dose: Infused Documented By: Admin: 09/12/23 14:08 Dose: 1,000 mls/hr Documented By: MEME Ondansetron HCl (Ondansetron 4 Mg/2 Ml Inj) 4 mg IV NOW PRN PRN Reason: Nausea And Vomiting Last Admin: 09/12/23 14:07 Dose: 4 mg Documented By: MEME Ondansetron HCl (Ondansetron 4 Mg Odt) 4 mg PO NOW PRN PRN Reason: Nausea And Vomiting Vital Signs Vital signs: Vital Signs - 8 hr 09/12/23 13:39 09/12/23 13:56 09/12/23 13:57 Temperature 97.9 F Pulse Rate 90 83 82 Respiratory Rate 14 Blood Pressure 166/111 H Pulse Oximetry 98 95 99 Oxygen Delivery Method Room Air 09/12/23 13:57 Temperature Pulse Rate Respiratory Rate Blood Pressure 153/101 H Pulse Oximetry Oxygen Delivery Method MDM - Nausea/Vomiting/Diarrhea Lab Data 09/12/23 13:54 09/12/23 13:54 Labs: Lab Results 09/12/23 09/12/23 Range/Units 13:54 14:47 WBC 6.9 (4.5-11.0) X10^3/uL RBC 4.91 (4.5-5.9) X10^6/uL Hgb 14.0 (13.5-17.5) g/dL Hct 42.1 (41-53) % MCV 85.8 (80-100) fL MCH 28.6 (26-34) PG MCHC 33.3 (30-36) % RDW 12.8 (11.6-14.8) % Plt Count 254 (150-400) X10^3/uL Neut % (Auto) 85.1 H (50-75) % Lymph % (Auto) 10.5 L (25-40) % [place] % (Auto) 3.3 (3-14) % Eos % (Auto) 0.5 L (2-4) % Baso % (Auto) 0.6 (0-2) % Neut # (Auto) 5900 (5808-3616) /uL Lymph # (Auto) 700 L (2720-6566) /uL [place] # (Auto) 200 (0-900) /uL Eos # (Auto) 0 (0-450) /uL Baso # (Auto) 0 (0-100) /uL Sodium 140 (137-145) mmol/L Potassium 4.3 (3.4-5.1) mmol/L Chloride 104 (98-107) mmol/L Carbon Dioxide 28 (22-32) mmol/L BUN 8 L (9-20) mg/dL Creatinine 1.40 H (0.66-1.25) mg/dL Estimated GFR > 60 (>60) mL/min BUN/Creatinine Ratio 5.7 L (6-22) Glucose 105 H (70-100) mg/dL Calcium 9.2 (8.4-10.2) mg/dL Total Bilirubin 0.9 (0.2-1.3) mg/dL AST 33 (17-59) IU/L ALT 18 (<50) IU/L Alkaline Phosphatase 72 (38-126) U/L Total Protein 7.8 (6.3-8.2) g/dL Albumin 4.7 (3.5-5.0) g/dL Globulin 3.1 (1.7-4.1) g/dL Albumin/Globulin Ratio 1.5 (1.0-2.8) Lipase 44 (23-300) U/L Urine RBC None seen (0-5/HPF) Urine WBC None seen (0-5/HPF) Ur Squamous Epith Cells None seen (0-5/HPF) Urine Bacteria None seen (None) Ur Culture Indicated? Cult not indicated Vol Urine Centrifuged 10ml (spun) Urine Dip Bedside Urine Glucose Negative Bedside Urine Bilirubin - Negative Bedside Urine Ketone - Negative Urine Specific [place] 1.010 Bedside Urine Occult Blood - Negative Bedside Urine pH 8.5 Bedside Urine Protein +/- 15 Bedside Urine Urobilinogen - Negative Bedside Urine Nitrite - Negative Bedside Urine Leukocytes - Negative Esterase MDM Narrative Medical decision making narrative: Repeat visit for nausea and vomiting despite being sent home on multiple different antiemetics. Kidney function today stable compared to yesterday and earlier this week. POC urine negative for ketones. Patient given droperidol for nausea and vomiting, which did help his nausea, but did make him feel ?dizzy in weird?. Patient given 50 of Benadryl which did improve his symptoms somewhat, but he continued to feel very lightheaded. Patient's case discussed with Dr. Landa of gastroenterology at [facility] since this is patient's 3rd visit in 5 days for same complaint. Patient denied use of marijuana but did test positive on urine drug screen. GI agreed with droperidol administration, we will take down patient's information to make an appointment in 1 week in clinic. Patient informed of GI referral and recommended calling office to ensure that he gets an appointment next week. Discharge Plan Departure Patient Disposition: Home Clinical Impression: Gastroenteritis Instructions: DI for Vomiting -- Adult Activity Restrictions/Additional Instructions: your creatinine today was 1.4. It has ranged between 1.2-1.89 over the last 4 months. Follow up with your ordained minister as directed previously. Zofran and Phenergan have been sent to the [facility] Prescriptions: New ondansetron 4 mg tablet,disintegrating 4 mg PO Q8H PRN (Reason: nausea and vomiting) Qty: 30 0RF promethazine 25 mg suppository 25 mg [place] Q4-6H PRN (Reason: nausea and vomiting) Qty: 12 0RF No Action hydrocodone-acetaminophen 5-325 mg tablet 1 tab PO Q8H PRN (Reason: pain) Qty: 7 0RF oxycodone 5 mg tablet 5 mg PO Q6H PRN (Reason: pain) Qty: 10 0RF albuterol sulfate 90 mcg/actuation HFA aerosol inhaler 1 puff inhalation QID PRN (Reason: shortness of breath or wheezing) Qty: 8.5 3RF magnesium oxide 420 mg tablet 420 mg PO BEDTIME Qty: 14 0RF tamsulosin 0.4 mg capsule 0.4 mg PO DAILY metoprolol succinate 50 mg tablet extended release 24 hr 50 mg PO DAILY ondansetron 4 mg tablet,disintegrating 4 mg PO Q8H PRN (Reason: nausea and vomiting) Qty: 30 0RF ondansetron 4 mg tablet,disintegrating 4 mg PO Q8H PRN (Reason: nausea and vomiting) Qty: 10 0RF sucralfate [Carafate] 1 gram tablet 1 g PO BID Qty: 30 0RF omeprazole 40 mg capsule,delayed release(DR/EC) 40 mg PO DAILY Qty: 60 0RF Referrals: Reggie Guerra DO [Primary Care Provider] - Stand Alone Forms: Patient Portal/API
[2023-09-12 15:05] LABS: Urine Volume 10mL (spun)
[2023-09-12 15:06] LABS: Bacteria Urine None Seen; Culture Indicated Urine Cult Not Indicated; RBC Urine None Seen (0-5/HPF); Squamous Epithelial Cell Urine None Seen (0-5/HPF); WBC Urine None Seen (0-5/HPF)
[2023-09-12 15:31] VITALS: BP 144/88; PULSE 90; RESP 14; O2SAT 99
== END 2023-09-12 15:33 | disposition home or self-care (01) ==
PROVIDERS: Emergency Provider Emergency Medicine; PCP Family Medicine
DX: K52.9 Noninfective gastroenteritis and colitis, unspecified (principal)
CPT/HCPCS: 36415; 80053; 81003; 81015; 83690; 85025; 87086; 93005; 96361; 96374; 99284; J2405

== ENCOUNTER 2023-09-13 09:48 | Emergency (ER) | payer OTHER, MEDICAID, SELFPAY ==
[2023-06-05 19:00] VITALS: BMI 21.4
[2023-09-13 09:54] VITALS: PULSE 88; O2SAT 93
[2023-09-13 09:55] VITALS: BP 143/101; PULSE 86; PULSE 89; RESP 18; TEMP 36.6; O2SAT 100; BMI 22.4
--- NOTE | 2023-09-13 09:57 | ED_ITS ---
HPI - Nausea/Vomiting/Diarrhea General Chief complaint: Nausea/Vomiting/Diarrhea Stated complaint: nausea, abd pain, was seen twice this week Time Seen by Provider: 09/13/23 09:50 History of Present Illness HPI Narrative: 33-year-old male presents for nausea, vomiting, midepigastric abdominal pain. Patient has already been seen twice for same complaint, 1st time on 09/07, 2nd time yesterday by myself, and again a 3rd time today. Yesterday patient's laboratory work was more or less unchanged. He felt better after getting Zofran and IV fluids and he was discharged home with a refill of Zofran as well as Phenergan suppositories. Patient states that the Phenergan suppositories helped to keep him from vomiting, but he still feels very nauseous. He states he was having trouble sleeping due to the nausea. Related Data Home Medications Medication Instructions Recorded Confirmed tamsulosin 0.4 mg capsule 0.4 mg PO DAILY 06/05/23 06/06/23 metoprolol succinate 50 mg 50 mg PO DAILY 06/06/23 06/06/23 tablet,extended release 24 hr Previous Rx's Medication Instructions Recorded albuterol sulfate 90 mcg/actuation 1 puff inhalation QID PRN 01/17/22 aerosol inhaler shortness of breath or wheezing #8.5 grams magnesium oxide 420 mg tablet 420 mg PO BEDTIME #14 tabs 01/17/22 hydrocodone 5 mg-acetaminophen 325 1 tab PO Q8H PRN pain #7 tabs 06/01/23 mg tablet ondansetron 4 mg disintegrating 4 mg PO Q8H PRN nausea and 06/06/23 tablet vomiting #30 tabs oxycodone 5 mg tablet 5 mg PO Q6H PRN pain #10 tabs 06/09/23 ondansetron 4 mg disintegrating 4 mg PO Q8H PRN nausea and 09/08/23 tablet vomiting #10 tabs ondansetron 4 mg disintegrating 4 mg PO Q8H PRN nausea and 09/12/23 tablet vomiting #30 tabs promethazine 25 mg rectal 25 mg MI Q4-6H PRN nausea and 09/12/23 suppository vomiting #12 ea omeprazole 40 mg capsule,delayed 40 mg PO DAILY #60 caps 09/13/23 release sucralfate 1 gram tablet (Carafate) 1 g PO BID #30 tabs 09/13/23 Allergies Allergy/AdvReac Type Severity Reaction Status Date / Time sulfamethoxazole AdvReac Intermediate GAY Verified 09/13/23 10:00 [From Bactrim] trimethoprim [From Bactrim] AdvReac Intermediate GAY Verified 09/13/23 10:00 Patient History Social History household members: family Smoking Status: Never smoker alcohol intake: former Smoking Status: Never smoker alcohol intake frequency: other Substance Use Type: does not use Exam Initial Vital Signs Initial Vital Signs: Vital Signs Pulse Rate 88 09/13/23 09:54 Pulse Oximetry 93 09/13/23 09:54 Const: Awake, alert, uncomfortable, nontoxic appearing Cardiac: regular rate, regular rhythm RESP: unlabored, clear bilaterally, no wheezing GI: Soft, nontender, nondistended Skin: Warm, Dry, intact, no rashes Neuro: AO x3, CN II-XII grossly intact, moves all extremities Course Orders Ordered: Discontinued Medications Al Hydrox/Mg Hydrox/Simethicone (Mag Hydrox/Alum/Simeth 30 Ml Udc) 30 ml PO NOW ONE Stop: 09/13/23 10:11 Last Admin: 09/13/23 11:10 Dose: 30 ml Documented By: TRISTA Diazepam (Diazepam 10 Mg/2 Ml Syringe) 2 mg IV NOW ONE Stop: 09/13/23 14:01 Last Admin: 09/13/23 14:03 Dose: 2 mg Documented By: TRISTA Diphenhydramine HCl (Diphenhydramine 50 Mg/Ml Vial) 50 mg IV NOW ONE Stop: 09/13/23 12:24 Last Admin: 09/13/23 12:28 Dose: 50 mg Documented By: SAMMI Droperidol (Droperidol 5 Mg/2 Ml Vial) 2.5 mg IV NOW ONE Stop: 09/13/23 11:37 Last Admin: 09/13/23 12:06 Dose: 2.5 mg Documented By: SAMMI Sodium Chloride (Normal Saline 0.9%) 1,000 mls @ 1,000 mls/hr IV BOLUS ONE Stop: 09/13/23 11:09 Last Infusion: 09/13/23 12:02 Dose: Infused Documented By: Admin: 09/13/23 11:10 Dose: 1,000 mls/hr Documented By: TRISTA Sodium Chloride (Normal Saline 0.9%) 1,000 mls @ 1,000 mls/hr IV BOLUS ONE Stop: 09/13/23 12:37 Last Infusion: 09/13/23 13:18 Dose: Infused Documented By: Admin: 09/13/23 12:06 Dose: 1,000 mls/hr Documented By: SAMMI Lidocaine HCl (Lidocaine Viscous 2% 15 Ml Solution) 15 ml PO NOW ONE Stop: 09/13/23 10:11 Last Admin: 09/13/23 11:10 Dose: 15 ml Documented By: TRISTA Lorazepam (Lorazepam 0.5 Mg Tablet) 1 mg PO NOW ONE Stop: 09/13/23 13:23 Last Admin: 09/13/23 13:25 Dose: 1 mg Documented By: SAMMI Ondansetron HCl (Ondansetron 4 Mg/2 Ml Inj) 4 mg IV NOW ONE Stop: 09/13/23 10:11 Last Admin: 09/13/23 11:10 Dose: 4 mg Documented By: TRISTA Vital Signs Vital signs: Vital Signs - 8 hr 09/13/23 09:55 Temperature 97.8 F Pulse Rate 89 Respiratory Rate 18 Blood Pressure 143/101 H Pulse Oximetry 100 Oxygen Delivery Method Room Air MDM - Nausea/Vomiting/Diarrhea Differential Diagnosis Differential diagnosis: Likely traveler's diarrhea, food poisoning and gastroenteritis Lab Data 09/13/23 10:40 Labs: Lab Results 09/13/23 09/13/23 Range/Units 10:40 13:28 Sodium 140 (137-145) mmol/L Potassium 4.5 (3.4-5.1) mmol/L Chloride 106 (98-107) mmol/L Carbon Dioxide 27 (22-32) mmol/L BUN 8 L (9-20) mg/dL Creatinine 1.37 H (0.66-1.25) mg/dL Estimated GFR > 60 (>60) mL/min BUN/Creatinine Ratio 5.8 L (6-22) Glucose 99 (70-100) mg/dL Calcium 9.6 (8.4-10.2) mg/dL U Opiates 300ng/mL cut Negative (Negative) Ur Oxycodone Screen Negative (Negative) Urine Methadone Screen Negative (Negative) Ur Barbiturates Screen Negative (Negative) U Tricyclic Antidepress Negative (Negative) Ur Phencyclidine Scrn Negative (Negative) Ur Amphetamines Screen Negative (Negative) U Methamphetamines Scrn Negative (Negative) Ur MDMA Scrn (Ecstasy) Negative (Negative) U Benzodiazepines Scrn Negative (Negative) Urine Cocaine Screen Negative (Negative) U Marijuana (THC) Screen Positive H (Negative) Urine pH Normal (Normal) Urine Specific [place] Normal (Normal) Ur Creatinine Normal (Normal) MDM Narrative Medical decision making narrative: Nausea and vomiting. Improved after fluids. GI referral made Discharge Plan Departure Patient Disposition: Home Clinical Impression: Nausea & vomiting Instructions: DI for Vomiting -- Adult Activity Restrictions/Additional Instructions: Your laboratory work today is stable. I was able to speak to GI and they will try to arrange an appointment for you next week. Please call the number below to schedule your appointment. Take a daily antacid such as Pepcid or omeprazole. Continue to take the antinausea medications as prescribed. Prescriptions: New sucralfate [Carafate] 1 gram tablet 1 g PO BID Qty: 30 0RF omeprazole 40 mg capsule,delayed release(DR/EC) 40 mg PO DAILY Qty: 60 0RF No Action hydrocodone-acetaminophen 5-325 mg tablet 1 tab PO Q8H PRN (Reason: pain) Qty: 7 0RF oxycodone 5 mg tablet 5 mg PO Q6H PRN (Reason: pain) Qty: 10 0RF ondansetron 4 mg tablet,disintegrating 4 mg PO Q8H PRN (Reason: nausea and vomiting) Qty: 30 0RF promethazine 25 mg suppository 25 mg MI Q4-6H PRN (Reason: nausea and vomiting) Qty: 12 0RF albuterol sulfate 90 mcg/actuation HFA aerosol inhaler 1 puff inhalation QID PRN (Reason: shortness of breath or wheezing) Qty: 8.5 3RF magnesium oxide 420 mg tablet 420 mg PO BEDTIME Qty: 14 0RF tamsulosin 0.4 mg capsule 0.4 mg PO DAILY metoprolol succinate 50 mg tablet extended release 24 hr 50 mg PO DAILY ondansetron 4 mg tablet,disintegrating 4 mg PO Q8H PRN (Reason: nausea and vomiting) Qty: 30 0RF ondansetron 4 mg tablet,disintegrating 4 mg PO Q8H PRN (Reason: nausea and vomiting) Qty: 10 0RF Referrals: Aroldo Landa MD [Non-Staff] - Reggie Guerra DO [Primary Care Provider] - Stand Alone Forms: Patient Portal/API
[2023-09-13 10:00] VITALS: BP 149/101; PULSE 61; O2SAT 99
[2023-09-13 11:09] LABS: BUN Creatinine Ratio 5.8 (6-22); Blood Urea Nitrogen 8 mg/dL (9-20); Calcium 9.6 mg/dL (8.4-10.2); Carbon Dioxide 27 mmol/L (22-32); Chloride 106 mmol/L (98-107); Estimated Glomerular Filt Rate > 60 mL/min (>60); Glucose 99 mg/dL (70-100); HEMOLYSIS < 15 (0-50); Potassium 4.5 mmol/L (3.4-5.1); Sodium 140 mmol/L (137-145)
[2023-09-13] MEDS: LIDOCAINE VISCOUS 2% 15 ML SOLUTION PO (11:10)
[2023-09-13] MEDS: ONDANSETRON 4 MG/2 ML INJ IV (11:10)
[2023-09-13] MEDS: SODIUM CHLORIDE 0.9% 1,000 ML 1000 ML IV ×2 (11:10→12:06)
[2023-09-13] MEDS: MAG HYDROX/ALUM/SIMETH 30 ML UDC PO (11:10)
[2023-09-13] MEDS: DROPERIDOL 5 MG/2 ML VIAL 2.5 MG IV (12:06)
[2023-09-13] MEDS: diphenhydrAMINE 50 MG/ML VIAL IV (12:28)
--- NOTE | 2023-09-13 12:29 | PC.NURSE ---
Addendum entered by Edwige Viera R.N. 09/13/23 12:43: 1243 Pt states that he feels better after 50mg of benadryl. Dr Hart upated on pt status and requested PO challenge. Original Note: Pt c/o feeling dizzy and weird. States that he has never felt like this before could not take deep breath. Dr Hart notified and ordered 50mg of IV benadryl.
[2023-09-13] MEDS: LORazepam 0.5 MG TABLET 1 MG PO (13:25)
[2023-09-13 13:37] LABS: Ur Creatinine Normal (Normal); Ur Specific Gravity Normal (Normal); Urine pH Normal (Normal)
[2023-09-13 13:38] LABS: Urine Amphetamines Negative (Negative); Urine Barbiturates Negative (Negative); Urine Benzodiazepines Negative (Negative); Urine Cocaine Negative (Negative); Urine MDMA Negative (Negative); Urine Methadone Negative (Negative); Urine Methamphetamines Negative (Negative); Urine Opiates Negative (Negative); Urine Oxycodone Negative (Negative); Urine Phencyclidine Negative (Negative); Urine THC Positive (Negative); Urine Tricyclic Antidepressant Negative (Negative)
[2023-09-13 14:01] VITALS: BP 131/89; PULSE 112; O2SAT 97
[2023-09-13] MEDS: diazePAM 10 MG/2 ML SYRINGE 2 MG IV (14:03)
--- NOTE | 2023-09-13 14:34 | PC.NURSE ---
pt reports that he wants to go home and has called for ride.
[2023-09-13 14:39] VITALS: BP 131/89; PULSE 88; RESP 18; O2SAT 99
== END 2023-09-13 14:41 | disposition home or self-care (01) ==
PROVIDERS: Emergency Provider Emergency Medicine; PCP Family Medicine
DX: R11.2 Nausea with vomiting, unspecified (principal)
CPT/HCPCS: 36415; 80048; 80305; 96361; 96374; 96375; 99284; J1200; J1790; J2405; J3360